=== PATIENT | female | born 1970 | race Caucasian/White ===

== ENCOUNTER 2020-03-02 11:39 | Outpatient (CLI) | payer MEDICAID, SELFPAY ==
[2020-03-02 12:25] LABS: SARS-CoV-2 Ag Negative (Negative)
== END 2020-03-02 11:40 | disposition home or self-care (01) ==
LOC: CHSLAB 11:43
PROVIDERS: PCP Family Medicine; Visit Provider Family Medicine
DX: R06.9 Unspecified abnormalities of breathing (principal); Z20.828 Contact with and (suspected) exposure to other viral communicable diseases
CPT/HCPCS: 87426

== ENCOUNTER 2022-09-04 14:56 | Emergency (ER) | payer OTHER, SELFPAY ==
--- NOTE | ~2022-09-04 | CT_ITS ---
EXAMINATION: CT abdomen pelvis wo con DATE: 09/04/2022 15:31 INDICATION: Abdominal pain TECHNIQUE: Computed tomography (CT) of the abdomen and pelvis was performed without intravenous contr ast. The dose-length product (DLP) was 1231.83 mGy-cm. Automated exposure control and iterative recon struction technique were employed. COMPARISON: None FINDINGS: Minimal dependent atelectasis is present in the lung bases. The heart size is normal. Punct ate calcifications in an otherwise normal spleen likely represent healed granulomatous disease. Stone s are present in the nondistended gallbladder. The liver, pancreas, and adrenal glands are normal. No nobstructing stones of the kidneys measure up to 3 mm on the left. There is a hernia of the anterior abdominal wall containing a segment of the transverse colon. The colon proximal to the hernia is dist ended and the colon distal to the hernia is collapsed. Immediately distal to the obstructed segment i s another short herniated segment of transverse colon into the anterior abdominal wall. No pathologic ally enlarged abdominal or pelvic lymph nodes are identified. There is no free intraperitoneal gas. T here is a small volume of pelvic ascites. There is moderate lumbar spondylosis. IMPRESSION: 1. Colonic obstruction resulting from a herniation of a segment of transverse colon into a ventral he rnia. Surgical evaluation is recommended. These findings and recommendations were discussed with Dr. Ye Irving MD in the Emergency Department at 1541 hours on 09/04/2022. 2. Cholelithiasis without evidence of cholecystitis. Reviewed, dictated and finalized at location L. IMPRESSION: 1. Colonic obstruction resulting from a herniation of a segment of transverse c olon into a ventral hernia. Surgical evaluation is recommended. These findings and recommendations were discussed with Dr. Ye Irving MD in the [facility] at 1541 hours on 09/04/2022. 2. Cholelithiasis without evidence of cholecystitis.
--- NOTE | 2022-09-04 15:08 | ECG_ITS ---
Measurements Intervals [place] Rate: 78 P: 28 NE: 152 QRS: -46 QRSD: 101 T: 71 QT: 378 QTc: 433 Interpretive Statements SINUS RHYTHM LEFT ANTERIOR FASCICULAR BLOCK [QRS AXIS <= -45, QR IN I, RS IN II] POSSIBLE ANTERIOR MYOCARDIAL INFARCTION , PROBABLY OLD [30 ms Q WAVE IN V3/V4, OR R < 0.2 mV IN V4] ABNORMAL ECG INTERPRETATION BASED ON A DEFAULT AGE OF 40 YEARS NO PREVIOUS ECG AVAILABLE FOR COMPARISON Electronically Signed On 09-08-2022 9:15:01 CDT by Tarun Lyman M.D.
[2022-09-04 15:17] VITALS: BP 150/89; PULSE 106; TEMP 36.6; O2SAT 99
[2022-09-04 15:24] LABS: Basophils Absolute Auto 0.04 K/mm3 (0.00-0.10); Basophils Percent Auto 0.3 % (0.0-1.0); Eosinophils Absolute Auto 0.11 K/mm3 (0.02-0.50); Eosinophils Percent Auto 0.9 % (1.0-6.0); Hematocrit 48.6 % (35.0-49.0); Hemoglobin 15.9 g/dL (12.0-15.0); Immature Granulocyte Absolute 0.07 K/mm3 (0.00-0.00); Immature Granulocyte Percent A 0.6 % (0.0-0.0); Lymphocytes Absolute Auto 2.52 K/mm3 (1.10-4.50); Lymphocytes Percent Auto 20.3 % (18.0-42.0); Mean Corpuscular HGB Conc 32.7 g/dL (32.0-36.0); Mean Corpuscular Hemoglobin 28.2 pg (27.0-31.0); Mean Corpuscular Volume 86.3 fL (78.0-102.0); Mean Platelet Volume 9.2 fl (9.2-11.8); Monocytes Absolute Auto 0.78 K/mm3 (0.10-0.90); Monocytes Percent Auto 6.3 % (2.0-11.0); Neutrophils Absolute Auto 8.9 K/mm3 (1.7-7.2); Neutrophils Percent Auto 71.6 % (50.0-70.0); Platelet Count Result 377 K/mm3 (150-420); Red Blood Count 5.63 M/mm3 (4.20-5.40); Red Cell Distribution Width 14.6 % (11.6-14.4); White Blood Count 12.4 K/mm3 (4.8-10.8)
[2022-09-04] MEDS: SODIUM CHLORIDE 0.9% IV 1,000 ML 999 ML IV CONT (15:35)
[2022-09-04] MEDS: ONDANSETRON INJ 4 MG/2 ML VIAL IV PUSH (15:36)
[2022-09-04] MEDS: KETOROLAC 30 MG/ML VIAL (*BKC) IV PUSH (15:36)
[2022-09-04 15:38] LABS: INR 0.9; Partial Thromboplastin Time 27.4 SEC (23.90-30.70); Prothrombin Time 10.1 Seconds (9.50-12.10)
[2022-09-04 15:41] LABS: Alanine Aminotransferase 19 U/L (14-59); Albumin Level 3.3 g/dL (3.4-5.0); Alkaline Phosphatase 103 U/L (46-116); Anion Gap 8 mmol/L (8-16); Aspartate Amino Transferase 16 U/L (15-37); Bilirubin,Total 0.6 mg/dL (0.00-1.00); Blood Urea Nitrogen 9 mg/dL (7-18); Calcium 9.7 mg/dL (8.5-10.1); Carbon Dioxide 27 mmol/L (21-32); Chloride 100 mmol/L (98-108); Estimated CRCL calculation 85 ml/min; Estimated Glomerular Filt Rate > 60; Glucose 110 mg/dL (70-99); Lipase 38 U/L (16-77); Osmolality Calculated 279 mOsm/kg (285-295); Potassium 4.1 mmol/L (3.5-5.1); Sodium 135 mmol/L (136-145); Troponin I 4.7 ng/L (0.00-60.4)
[2022-09-04 15:50] LABS: Lactic Acid Reflex 0.7 mmol/L (0.4-2.0)
--- NOTE | 2022-09-04 15:53 | ED.ABDPAIN ---
HPI - Abdominal Pain General Chief Complaint: Abdominal Pain Stated Complaint: right epigastric pain Time Seen by Provider: 09/04/22 15:08 Source: patient Mode of arrival: wheelchair Limitations: no limitations History of Present Illness HPI narrative: This is a 51-year-old female that has a abdominal pain started on Thursday has been off and on but over the last 24hours has not been able to pass gas. The patient has a history of ventral hernia he repair in the in the past, rates her pain at about an 8/10 with no diarrhea or constipation no shortness of breath no chest pain no fevers patient states that she has been having some chills and unable to pass gas or bowel movement. Patient states that she has had numerous hernia repairs in the past and around [address] MD elicited complaint: abdominal pain Onset (ago): day(s) Pain Consistency: constant Location: RLQ Severity: severe Pain scale (0-10): 8 Quality: aching Related Data Home Medications Medication Instructions Recorded Confirmed No Home Medications 09/04/22 09/04/22 Allergies Allergy/AdvReac Type Severity Reaction Status Date / Time No Known Allergies Verified 09/04/22 15:10 Review of Systems Review of Systems: All systems reviewed & are unremarkable except as noted in HPI and below PMFSH Past Medical History Medical History ADD (attention deficit disorder) Asthma Exam Const: General: ill appearing Nutritional Appearance: well nourished Orientation/consciousness: patient oriented x3 Limitations: no limitations HENMT: Head: normal to inspection Eyes: Conjunctivae: conjunctivae normal Pupils: Equal, round and reactive pupils present Neck: Neck: normal visual inspection Chest: Chest palpation & inspection: normal inspection of the chest Resp: Effort & Inspection: normal respiratory effort Cardio: Rate: regular rate Rhythm: regular rhythm GI: GI Palp: Yes Soft to palpation Auscultation: normal bowel sounds : General: Yes bladder normal to palpation Skin: General skin exam: normal color Rashes: no rashes Wounds: no wounds Neuro: General: patient oriented x3 Cranial nerves: Yes Nystagmus not present Extrem: General: normal to inspection Psych: Mental Status: mental status grossly normal Affect: normal affect Course Course Emergency Course: patient with abdominal pain received pain medication and states that her pain level has improved, also received Zofran with IV fluids. CT scan abdomen and pelvis performed shows colonic obstruction. Labs reviewed with patient. Spoke to patient about transfer and surgical referral and evaluation patient voiced her understanding. spoke to surgeon and hospitalist at [facility] which accepted the patient for transfer. Surgeon, Dr. Mejia and hospitalist Yousuf Pham Vital Signs Vital signs: Vital Signs Temperature 36.6 C 09/04/22 15:17 Pulse Rate 106 H 09/04/22 15:17 Blood Pressure 150/89 H 09/04/22 15:17 Pulse Oximetry 99 09/04/22 15:17 Oxygen Delivery Room Air 09/04/22 15:17 Temperature 36.6 C 09/04/22 15:17 Pulse Rate 106 H 09/04/22 15:17 Blood Pressure 150/89 H 09/04/22 15:17 Pulse Oximetry 99 09/04/22 15:17 Oxygen Delivery Room Air 09/04/22 15:17 MDM - Abdominal Pain Lab Data 09/04/22 15:18 09/04/22 15:18 Labs: Lab Results 09/04/22 Range/Units 15:18 WBC 12.4 H (4.8-10.8) K/mm3 RBC 5.63 H (4.20-5.40) M/mm3 Hgb 15.9 H (12.0-15.0) g/dL Hct 48.6 (35.0-49.0) % MCV 86.3 (78.0-102.0) fL MCH 28.2 (27.0-31.0) pg MCHC 32.7 (32.0-36.0) g/dL RDW 14.6 H (11.6-14.4) % Plt Count 377 (150-420) K/mm3 MPV 9.2 (9.2-11.8) fl Immature Gran % (Auto) 0.6 H (0.0-0.0) % Neut % (Auto) 71.6 H (50.0-70.0) % Lymph % (Auto) 20.3 (18.0-42.0) % [place] % (Auto) 6.3 (2.0-11.0) % Eos % (Auto) 0.9 L (1.0-6.0)
[2022-09-04 16:15] VITALS: BP 128/78; PULSE 85; RESP 20; O2SAT 96
[2022-09-04] MEDS: MORPHINE SULFATE (*CRX) 4 MG/ML INJ IV PUSH ×2 (16:45→19:19)
[2022-09-04 17:15] VITALS: BP 114/67; PULSE 78; TEMP 36.5; O2SAT 96
[2022-09-04 18:15] VITALS: BP 120/78; PULSE 85; RESP 20; O2SAT 96
[2022-09-04 19:15] VITALS: BP 113/76; PULSE 87; RESP 20; TEMP 37.3; O2SAT 96
== END 2022-09-04 19:34 | disposition short-term general hospital (02) ==
PROVIDERS: Emergency Provider Emergency Medicine; PCP Family Medicine
DX: K56.691 Other complete intestinal obstruction (principal)
CPT/HCPCS: 36415; 74176; 80053; 83605; 83690; 84484; 85025; 85610; 85730; 93005; 96361; 96374; 96375; 96376; 99285; J1885; J2270; J2405; J7030

== ENCOUNTER 2022-09-23 17:20 | Emergency (ER) | payer OTHER, SELFPAY ==
--- NOTE | ~2022-09-23 | XR_ITS ---
EXAMINATION: XR chest 1V portable Exam Date/Time: 09/23/2022 17:50 CDT HISTORY: nonproductive cough Comparison: 09/04/2022. RESULT: Lines, tubes, and devices: None. Lungs and pleura: Minimal left basilar scar. Mild left hemidiaphragm elevation. Left midlung nodule. Otherwise clear. Cardiomediastinal silhouette: Stable. Other: No acute osseous or upper abdominal finding. IMPRESSION: No acute cardiopulmonary process. Left midlung nodule, prior recommendation for nonemergent, outpatie nt low-dose noncontrast CT of the chest is unchanged. Reviewed, dictated and finalized at location K. IMPRESSION: No acute cardiopulmonary process. Left midlung nodule, prior recommendation for nonemergent, outpatient low-dose noncontrast CT of the chest is unchanged.
[2022-09-23 17:25] VITALS: BP 148/93; PULSE 108; RESP 22; TEMP 37.1; O2SAT 97
--- NOTE | 2022-09-23 17:31 | ED.ABDPAIN ---
HPI - Abdominal Pain General Chief Complaint: Shortness of Breath/Dyspnea Stated Complaint: respiratory; abdominal pain Time Seen by Provider: 09/23/22 17:27 Source: patient Mode of arrival: ambulatory Limitations: no limitations History of Present Illness HPI narrative: 51-year-old female with a history of smoking, asthma, recent incarcerated ventral hernia repair with small intestinal resections/colonic obstruction for which she was admitted from 09/04/2022 to 09/11/2022 presents to the ER with a 3 day history of -- upper respiratory tract symptoms including running nose, sinus drainage -- frontal headache -- nonproductive cough -- abdominal pain made worse by coughing. No abdominal distension. The patient has been having bowel movements. -- nausea with vomiting. She has had 2 episodes of vomiting this morning. -- Low-grade fever after the patient was discharged home on 09/11/2022 the patient felt well. All the symptoms started in the last 3 days. MD elicited complaint: abdominal pain Pertinent past history: none Onset (ago): day(s) ( Started 3 days ago) Pain Consistency: intermittent Location: diffuse Severity: mild Quality: cramping Radiation: none Migration to: no migration Exacerbating factors: other ( coughing) Relieving factors: nothing Associated symptoms: nausea and vomiting Related Data Patient : No Home Medications Medication Instructions Recorded Confirmed budesonide-formoterol HFA 160 2 inh inhalation BID 09/04/22 09/23/22 mcg-4.5 mcg/actuation aerosol inhaler (Symbicort) Allergies Allergy/AdvReac Type Severity Reaction Status Date / Time No Known Allergies Allergy Verified 09/23/22 17:32 Review of Systems Review of Systems: All systems reviewed & are unremarkable except as noted in HPI and below Constitutional: Constitutional: Reports as per HPI and Reports no additional constitutional complaints Eyes: Eyes: Reports as per HPI and Reports no additional eye complaints ENT: Reports system reviewed and no additional complaints, except as documented, Reports as per HPI and Reports nasal congestion Cardiovascular: Cardiovascular: Reports as per HPI and Reports no additional cardiovascular complaints Respiratory: Respiratory: Reports as per HPI, Reports no additional respiratory complaints, Reports chest congestion and Reports cough Gastrointestinal: Gastrointestinal: Reports as per HPI, Reports no additional gastrointestinal complaints, Reports abdominal pain, Reports nausea and Reports vomiting Genitourinary: Genitourinary: Reports no additional female genitourinary complaints Musculoskeletal: Musculoskeletal: Reports no additional musculoskeletal complaints and Reports as per HPI Integumentary/Breasts: Skin/Breast: Reports system reviewed and no additional complaints, except as docu and Reports as per HPI Neurologic: Reports system reviewed and no additional complaints, except as documented and Reports as per HPI Psychiatric: Psychiatric: Reports no additional psychiatric complaints and Reports as per HPI Endocrine: Endocrine: Reports no additional endocrine complaints and Reports as per HPI Hematologic/Lymphatic: Hematologic/Lymphatic: Reports no additional hematologic/lymphatic complaints and Reports as per HPI Allergic/Immunologic: Allergic/Immunologic: Reports no additional allergic/immunologic complaints and Reports as per HPI [facility] Past Medical History Medical History ADD (attention deficit disorder) Asthma Allergic asthma, allergic to cats which she has in her home Surgical History Surgical History History of incisional hernia repair Repair 22 cm recurrent ventral incisional hernia, removal 22 x 15 cm abdominal wall mesh, extensive adhesiolysis, small-bowel resection with anastomosis Family History Family History (Reviewed 09/23/22 @ 17:42 by Joel Greenberg
[2022-09-23 17:33] VITALS: BP 148/93; PULSE 109; RESP 18; TEMP 37.1; O2SAT 97
[2022-09-23 17:37] VITALS: O2SAT 98
--- NOTE | 2022-09-23 17:53 | PC.NURSE ---
PCR test sent to lab [id number]
[2022-09-23 18:02] LABS: Basophils Absolute Auto 0.08 K/mm3 (0.00-0.10); Basophils Percent Auto 0.8 % (0.0-1.0); Eosinophils Absolute Auto 0.88 K/mm3 (0.02-0.50); Eosinophils Percent Auto 8.5 % (1.0-6.0); Hematocrit 39.7 % (35.0-49.0); Hemoglobin 12.4 g/dL (12.0-15.0); Immature Granulocyte Absolute 0.08 K/mm3 (0.00-0.00); Immature Granulocyte Percent A 0.8 % (0.0-0.0); Lymphocytes Absolute Auto 1.24 K/mm3 (1.10-4.50); Lymphocytes Percent Auto 11.9 % (18.0-42.0); Mean Corpuscular HGB Conc 31.2 g/dL (32.0-36.0); Mean Corpuscular Hemoglobin 27.6 pg (27.0-31.0); Mean Corpuscular Volume 88.2 fL (78.0-102.0); Mean Platelet Volume 8.8 fl (9.2-11.8); Monocytes Absolute Auto 0.71 K/mm3 (0.10-0.90); Monocytes Percent Auto 6.8 % (2.0-11.0); Neutrophils Absolute Auto 7.4 K/mm3 (1.7-7.2); Neutrophils Percent Auto 71.2 % (50.0-70.0); Platelet Count Result 465 K/mm3 (150-420); Red Cell Distribution Width 15.5 % (11.6-14.4); White Blood Count 10.4 K/mm3 (4.8-10.8)
[2022-09-23 18:13] LABS: Appearance Urine Clear (Clear); Bilirubin Urine Negative (Negative); Blood Urine Negative (Negative); Color Urine Yellow (Yellow); Glucose Urine UA Negative (Negative); Ketones Urine Negative (Negative); Leukocyte Esterase Ur Negative LEU/UL (Negative); Nitrate Urine Negative (Negative); Protein Urine Negative (Negative); pH Urine 7.5 (5.0-8.0)
[2022-09-23 18:14] LABS: Add Urine Microscopic? NO
[2022-09-23 18:17] LABS: INR 0.9; Prothrombin Time 10.2 Seconds (9.50-12.10)
[2022-09-23 18:22] LABS: Lactic Acid Reflex 0.7 mmol/L (0.4-2.0)
[2022-09-23 18:23] LABS: Alanine Aminotransferase 21 U/L (14-59); Albumin Level 2.7 g/dL (3.4-5.0); Alkaline Phosphatase 98 U/L (46-116); Anion Gap 7 mmol/L (8-16); Aspartate Amino Transferase 19 U/L (15-37); Bilirubin,Total 0.3 mg/dL (0.00-1.00); Blood Urea Nitrogen 9 mg/dL (7-18); Calcium 8.9 mg/dL (8.5-10.1); Carbon Dioxide 30 mmol/L (21-32); Chloride 102 mmol/L (98-108); Estimated CRCL calculation 77 ml/min; Estimated Glomerular Filt Rate > 60; Glucose 105 mg/dL (70-99); Lipase 106 U/L (16-77); NT Pro B Type Natriuretic Pept 27 pg/mL (0-125); Osmolality Calculated 286 mOsm/kg (285-295); Sodium 139 mmol/L (136-145); Total Protein 7.3 g/dL (6.4-8.2)
[2022-09-23 18:39] LABS: Influenza A QL RT-PCR Negative (Negative); Influenza B QL RT-PCR Negative (Negative); SARS-CoV-2 RNA PCR Negative (Negative)
[2022-09-23 18:41] LABS: RSV RNA, RT-PCR Negative (Negative)
[2022-09-23] MEDS: AZITHROMYCIN 250 MG TABLET 500 MG PO (19:29)
[2022-09-23] MEDS: KETOROLAC 30 MG/ML VIAL (*BKC) IM (19:29)
[2022-09-23] MEDS: IPRATROPIUM 0.5 MG/ALBUTEROL SULFATE 2.5 MG AMPUL.NEB 3 ML INHALATION (19:29)
[2022-09-23] MEDS: MAG HYDROX/AL HYDROX/SIMETH 30 ML UDC PO (19:29)
[2022-09-23 19:31] VITALS: PULSE 104; RESP 18; O2SAT 94
[2022-09-23] MEDS: methylPREDNISolone SOD SUCC 125 MG VIAL 40 MG IM (19:34)
[2022-09-23 19:39] VITALS: PULSE 104; RESP 20; O2SAT 97
[2022-09-23 19:43] VITALS: BP 133/92; PULSE 103; RESP 20; O2SAT 97
== END 2022-09-23 19:52 | disposition home or self-care (01) ==
PROVIDERS: Emergency Provider Internal Medicine Critical Care Medicine; PCP Nurse Practitioner Family
DX: J44.1 Chronic obstructive pulmonary disease with (acute) exacerbation (principal); R91.1 Solitary pulmonary nodule; R10.84 Generalized abdominal pain; F17.210 Nicotine dependence, cigarettes, uncomplicated; Z20.822 Contact with and (suspected) exposure to COVID-19
CPT/HCPCS: 36415; 71045; 80053; 81003; 83605; 83690; 83880; 84484; 85025; 85610; 87637; 94640; 96372; 99284; A9270; J1885; J2930

== ENCOUNTER 2022-10-06 07:39 | Emergency (ER) | payer OTHER, SELFPAY ==
[2022-10-06] VITALS (28 sets, daily range): BP systolic 92–143; BP diastolic 70–89; PULSE 75–95; RESP 10–26; TEMP 36.7–36.9; O2SAT 91–100
--- NOTE | ~2022-10-06 | CT_ITS ---
EXAMINATION: CTA chest abdomen pelvis DATE: 10/06/2022 09:09 INDICATION: Chest pain radiating to the back TECHNIQUE: Computed tomographic angiography (CTA) of the chest, abdomen and pelvis was performed with 150 cc of Omnipaque-350 intravenous contrast. Additional 3D reconstructions utilizing rotating maxim um intensity projection (MIP) were performed. Automated exposure control and iterative reconstruction technique were employed. The dose-length product was 1367.73 mGy-cm. COMPARISON: 09/04/2022 FINDINGS: Chest: Linear bands of discoid atelectasis/scarring in the left lower lobe and lingula. There are couple kaylyn cified nodules within a relatively thin-walled cavitary lesion in the left lower lobe which along wit h calcified left hilar lymph nodes are likely sequela from old granulomatous disease. Heart size is n ormal. No pericardial effusion. Thoracic aorta is normal in caliber with no dissection. Although not performed as a dedicated pulmonary bullous protocol there is good contrast opacification of the pulmo nary arteries which demonstrates no pulmonary embolism. No pathologically enlarged thoracic lymphaden opathy. Mild thoracic spondylosis with prominent right anterior endplate osteophytes at a few levels in the midthoracic spine. Abdomen and pelvis: Multiple calcified gallstones in the dependent aspect of the normal-appearing gallbladder which measu res 2.8 cm in maximal diameter without wall thickening or pericholecystic inflammatory stranding to s uggest acute cholecystitis. Liver, pancreas, bilateral adrenal glands and kidneys are normal. Multipl e splenic calcification consistent with old granulomatous disease. Interval revision of a prior ventr al hernia repair. The repair appears intact however there is a 21.1 x 8.0 x 14.9 cm loculated loculat ed fluid collection with relatively low near simple fluid attenuation and without significant surroun ding inflammatory stranding in the subcutaneous fat at the site of the revision most likely represent ing a postoperative seroma. There is focal stranding in the central pelvis surrounding a 2.2 x 1.4 cm loculated gas and fluid collection at the end a suture line which appears to be related to a small b owel anastomosis to the terminal ileum. It is unclear if this collection is centered or more likely e xtraluminal. There is however no other more remote free intraperitoneal gas. No bowel obstruction. Bl adder is normal. The uterus is not identified and has likely been surgically resected. Abdominal aort a is normal in caliber with no dissection. No pathologically enlarged abdominal or pelvic lymphadenop athy. Lucent hemangioma at T12. Severe lower lumbar spondylosis. IMPRESSION: 1. Intact ventral hernia repair revision but with overlying 21 x 8 x 15 cm fluid collection is anteri or abdominal wall subcutaneous fat most likely representing a seroma. Differential would include absc ess in the appropriate clinical setting although there does not appear to be a significant amount of surrounding inflammation presenting to elevate suspicion. 2. 2.2 x 1.4 cm loculated gas and fluid collection at the end of a suture line related to a distal sm all bowel anastomosis. This appears more likely extraluminal. An intraluminal although there is no mo re remote free intraperitoneal gas to more specifically suggest this. 3. Cholelithiasis. 4. Normal aorta. No acute cardiopulmonary disease. Reviewed, dictated and finalized at location D. IMPRESSION: 1. Intact ventral hernia repair revision but with overlying 21 x 8 x 15 cm flui d collection is anterior abdominal wall subcutaneous fat most likely representi ng a seroma. Differential would include abscess in the appropriate clinical set ting although there does not appear to be a significant amount of surrounding i nflammatio
--- NOTE | ~2022-10-06 | US_ITS ---
Limited Abdominal Sonogram: Real-time sonographic imaging of the right upper quadrant was performed. Clinical History: Right upper quadrant pain Findings: The liver appears normal with no evidence of mass lesion or bile duct dilatation. Main por tesha vein demonstrates normal direction of flow. The gallbladder is well distended, and and contains e chogenic, shadowing gallstones. The common bile duct measures 5 mm. Pancreas is obscured by bowel ga s shadowing. Impression: Cholelithiasis. Reviewed, dictated and finalized at location M. Impression: Cholelithiasis.
--- NOTE | 2022-10-06 07:39 | ECG_ITS ---
Measurements Intervals [place] Rate: 86 P: 55 NC: 175 QRS: 12 QRSD: 97 T: 62 QT: 372 QTc: 447 Interpretive Statements SINUS RHYTHM DELAYED PRECORDIAL R/S TRANSITION BASELINE ARTIFACT- I, II, III, AVR, AVL BORDERLINE ECG COMPARED TO ECG 09/05/2022 10:14:30 NO SIGNIFICANT CHANGES Electronically Signed On 10-06-2022 7:51:13 CDT by Farshad Villalta D.O.
--- NOTE | 2022-10-06 07:46 | ED.GENADULT ---
HPI - General Adult General Chief complaint: Chest Pain Stated complaint: chest/abdominal pain Time Seen by Provider: 10/06/22 07:43 History of Present Illness HPI narrative: Iveth is a 51F with a PMH of COPD/asthma, RA, anxiety, tobacco abuse, and recent history of incarcerated hernia that presented to the ED with chest pain and epigastric pain. It started at 1230 last night and has waxed and wanted since. She reports and epigastric burning, and a dull chest pain that radiates to the right arm and back. She is nauseated but has not vomited. She is lightheaded when she stands up and had dyspnea while walking. Pain was worse with Tums. She also took lorazepam and Percocet which did not help. Last BM was yesterday. Related Data Home Medications Medication Instructions Recorded Confirmed budesonide-formoterol HFA 160 2 inh inhalation BID 09/04/22 10/06/22 mcg-4.5 mcg/actuation aerosol inhaler (Symbicort) Allergies Allergy/AdvReac Type Severity Reaction Status Date / Time No Known Allergies Allergy Verified 10/06/22 07:45 Review of Systems Review of Systems: All systems reviewed & are unremarkable except as noted in HPI and below PMFSH Past Medical History Medical History ADD (attention deficit disorder) Asthma Allergic asthma, allergic to cats which she has in her home Surgical History Surgical History History of incisional hernia repair Repair 22 cm recurrent ventral incisional hernia, removal 22 x 15 cm abdominal wall mesh, extensive adhesiolysis, small-bowel resection with anastomosis Family History Family History Father Diabetes mellitus Mother Colon cancer Breast cancer Social History Social History Years smoked: 40 Smoking status: Current every day smoker Tobacco type: cigarettes Alcohol intake: current Drinks per week: 9 Substance use: current Substance use type: marijuana Last use: SEP 02 2022 Lack of Transportation: YES Lack of Food: Never True Current Housing: I Have Housing Concerned About Future Housing: No Difficulty Paying Gas/Electric Bills: YES Difficulty Paying for Meds: YES Currently Unemployed: YES Education: Bachelor's Degree Difficulty w/ Childcare or Family Care: No Spiritual care concerns: No Exam Const: General: healthy appearing, no acute distress and alert; No confusion Nutritional Appearance: well nourished Orientation/consciousness: patient oriented x3 HENMT: Head: normal to inspection Ears: external ears normal Face/Nose/Sinus: Normal external nose present Eyes: Conjunctivae: conjunctivae normal Pupils: Equal, round and reactive pupils present Neck: Neck: normal visual inspection Chest: Chest palpation & inspection: normal inspection of the chest Resp: Effort & Inspection: normal respiratory effort Auscultation: clear to auscultation bilaterally Cardio: Rate: regular rate Rhythm: regular rhythm GI: Inspection: distended GI Palp: Yes Tenderness to palpation present (GI) (epigastric and RUQ) Auscultation: Hypoactive bowel sounds present Other: vertical midline scar Back/Spine/Pelvis: Back: CVA tenderness Skin: General skin exam: normal color Rashes: no rashes Neuro: General: patient oriented x3 and moves all extremities Cranial nerves: Yes Nystagmus not present Speech: normal speech Extrem: General: normal to inspection Psych: Mental Status: mental status grossly normal Course Course Emergency Course: Orderd labs and CT. EKG showed NSR with a rate of 86, normal axis and no ST elevation or depression. Labs showed slight leukocytosis at 11.3, and significant transaminitis, but troponin was normal. Limited Abdominal Sonogram: Real-time sonographic imaging of the right
--- NOTE | 2022-10-06 07:53 | PC.NURSE ---
PCR test sent to lab @[id number]
[2022-10-06] MEDS: ASPIRIN 81 MG CHEWABLE TABLET 324 MG PO (08:01)
[2022-10-06 08:02] LABS: Basophils Absolute Auto 0.04 K/mm3 (0.00-0.10); Basophils Percent Auto 0.4 % (0.0-1.0); Eosinophils Absolute Auto 0.53 K/mm3 (0.02-0.50); Eosinophils Percent Auto 4.7 % (1.0-6.0); Hemoglobin 12.4 g/dL (12.0-15.0); Immature Granulocyte Absolute 0.08 K/mm3 (0.00-0.00); Immature Granulocyte Percent A 0.7 % (0.0-0.0); Lymphocytes Absolute Auto 2.67 K/mm3 (1.10-4.50); Lymphocytes Percent Auto 23.6 % (18.0-42.0); Mean Corpuscular HGB Conc 32.6 g/dL (32.0-36.0); Mean Corpuscular Hemoglobin 28.6 pg (27.0-31.0); Mean Corpuscular Volume 87.6 fL (78.0-102.0); Mean Platelet Volume 9.2 fl (9.2-11.8); Monocytes Absolute Auto 0.69 K/mm3 (0.10-0.90); Monocytes Percent Auto 6.1 % (2.0-11.0); Neutrophils Absolute Auto 7.3 K/mm3 (1.7-7.2); Neutrophils Percent Auto 64.5 % (50.0-70.0); Platelet Count Result 322 K/mm3 (150-420); Red Blood Count 4.34 M/mm3 (4.20-5.40); Red Cell Distribution Width 15.1 % (11.6-14.4); White Blood Count 11.3 K/mm3 (4.8-10.8)
[2022-10-06 08:16] LABS: INR 0.9
[2022-10-06 08:24] LABS: Lactic Acid Reflex 1.3 mmol/L (0.4-2.0)
[2022-10-06 08:25] LABS: Alanine Aminotransferase 122 U/L (14-59); Albumin Level 2.9 g/dL (3.4-5.0); Alkaline Phosphatase 155 U/L (46-116); Anion Gap 9 mmol/L (8-16); Aspartate Amino Transferase 308 U/L (15-37); Bilirubin,Total 0.5 mg/dL (0.00-1.00); Blood Urea Nitrogen 14 mg/dL (7-18); Calcium 9.6 mg/dL (8.5-10.1); Carbon Dioxide 29 mmol/L (21-32); Chloride 102 mmol/L (98-108); Estimated CRCL calculation 80 ml/min; Estimated Glomerular Filt Rate > 60; Glucose 120 mg/dL (70-99); Lipase 85 U/L (16-77); NT Pro B Type Natriuretic Pept 25 pg/mL (0-125); Osmolality Calculated 291 mOsm/kg (285-295); Potassium 3.8 mmol/L (3.5-5.1); Sodium 140 mmol/L (136-145); Total Protein 7.3 g/dL (6.4-8.2); Troponin I 5.9 ng/L (0.00-60.4)
[2022-10-06 08:28] LABS: CRP 0.9 mg/dL (0.0-0.9); Lipase 85 U/L (16-77)
[2022-10-06 08:30] LABS: Influenza A QL RT-PCR Negative (Negative); Influenza B QL RT-PCR Negative (Negative); SARS-CoV-2 RNA PCR Negative (Negative)
[2022-10-06 08:31] LABS: RSV RNA, RT-PCR Negative (Negative)
--- NOTE | 2022-10-06 08:53 | PC.NURSE ---
PT IS AWAITING ULTRASOUND AT THIS TIME. NAD NOTED AT THIS TIME. WARM BLANKETS WERE PROVIDED. WILL CONTINUE TO MONITOR.
--- NOTE | 2022-10-06 10:41 | PC.NURSE ---
pt is upset that erp would not get a note to be excused from court today at 1330. pt is then upset, stating she is going to need pain medication ordered. advised pt that erp did send over a rx for pain medication. pt is currently pain free at this time.
== END 2022-10-06 10:44 | disposition home or self-care (01) ==
PROVIDERS: Emergency Provider Family Medicine; PCP Nurse Practitioner Family
DX: K80.20 Calculus of gallbladder without cholecystitis without obstruction (principal); T14.8XXA Other injury of unspecified body region, initial encounter; J44.9 Chronic obstructive pulmonary disease, unspecified; F41.9 Anxiety disorder, unspecified; F17.210 Nicotine dependence, cigarettes, uncomplicated; Z20.822 Contact with and (suspected) exposure to COVID-19; X58.XXXA Exposure to other specified factors, initial encounter
CPT/HCPCS: 36415; 71275; 74174; 76705; 80053; 83605; 83690; 83735; 83880; 84484; 85025; 85610; 86140; 87637; 93005; 99284; A9270; Q9967

== ENCOUNTER 2022-10-10 07:51 | Outpatient (CLI) | payer OTHER, SELFPAY ==
--- NOTE | ~2022-10-10 | NM_ITS ---
EXAMINATION: NM hepatobiliary w pharm DATE: 10/10/2022 10:24 INDICATION: Right upper quadrant abdominal pain worsening with food COMPARISON: CT dated 10/06/2022 TECHNIQUE: 5.6 mCi Tc-99m mebrofenin (Choletec) was administered intravenously. Scintigraphic images of the abdomen were obtained for one hour. 2 mcg sincalide (Kinevac) was administered by slow intrav enous infusion, and imaging was continued for 30 minutes. Gallbladder ejection fraction was calculate d by the technologist. FINDINGS: There is normal clearance of radiotracer from the blood pool. There is homogeneous tracer uptake by t he liver. Activity progresses to the gallbladder and bowel. The gallbladder ejection fraction (GBEF) is 76% (normal 10-90%, but most patient with gallbladder dysfunction have GBEF < 35% which does over lap with the normal range). IMPRESSION: 1. Normal hepatobiliary scan. Reviewed, dictated and finalized at location B.
== END 2022-10-10 07:52 | disposition home or self-care (01) ==
LOC: CHSIMG 07:53
PROVIDERS: PCP Nurse Practitioner Family; Visit Provider Surgery
DX: R10.11 Right upper quadrant pain (principal)
CPT/HCPCS: 78227; A9537; J2805

== ENCOUNTER 2022-10-13 10:30 | Outpatient (CLI) | payer OTHER, SELFPAY ==
--- NOTE | ~2022-10-13 | CT_ITS ---
EXAMINATION: CT lung screening DATE: 10/13/2022 11:09 INDICATION: lung nodule on CXR,SMOKER HISTORY TECHNIQUE: Computed tomography (CT) of the chest was performed without intravenous contrast. Addition al 3D reconstructions utilizing coronal maximum intensity projection (MIP) were performed. Automated exposure control and iterative reconstruction technique were employed. The dose-length product was 17 4.01 mGy-cm. COMPARISON: 10/06/2022 FINDINGS: Near band of discoid atelectasis at the lingula. Again seen are couple calcified nodules within a mul tilocular cystic lesion in the superior segment of the left lower lobe with thickness measuring up to 2 mm. A few additional calcified nodules in the left lung, calcified left hilar lymph nodes and mult iple splenic calcifications are all consistent with old granulomatous disease. No other suspicious pu lmonary nodules, pneumonia, pulmonary edema or pleural effusion. Heart size is normal. No pericardial effusion. Thoracic aorta is normal in caliber. No pathologically enlarged thoracic lymphadenopathy. Cholelithiasis and nephrolithiasis which along with a partially visualized likely postoperative serom a along the anterior abdominal wall or further detailed on separate CT of the abdomen and pelvis was performed on 10/13/2022. IMPRESSION: 1. Lung-RADS category 4A: (Suspicious, 5-15% chance of malignancy). Recommend 3 month follow-up low-d ose noncontrast chest CT. Reviewed, dictated and finalized at location A. IMPRESSION: 1. Lung-RADS category 4A: (Suspicious, 5-15% chance of malignancy). Recommend 3 month follow-up low-dose noncontrast chest CT.
--- NOTE | ~2022-10-13 | CT_ITS ---
EXAMINATION: CT abdomen pelvis wo con DATE: 10/13/2022 11:08 INDICATION: Right upper quadrant abdominal pain. Incisional hernia. TECHNIQUE: Computed tomography (CT) of the abdomen and pelvis was performed without intravenous contr ast. Automated exposure control and iterative reconstruction technique were employed. The dose-length product was 1174.85 mGy-cm. COMPARISON: None FINDINGS: Mild discoid atelectasis at the lingula. Heart size is normal. No pericardial or pleural effusion. Mu ltiple calcified gallstones within the otherwise normal gallbladder. Liver, pancreas and bilateral ad renal glands are normal. Multiple splenic calcifications consistent with old granulomatous disease. T here are bilateral nonobstructing renal stones with 2 stones measuring up to 2-3 mm in maximal diamet er. Again seen is an intact ventral hernia repair with overlying large loculated subcutaneous fluid c ollection measuring 19.3 cm craniocaudally and 13.6 x 7.6 cm in maximal transaxial dimensions with mi nimal amount of fat layering in the nondependent aspect of the fluid collection. There are couple per sistent tiny foci of gas in the midline abdominal wall at the cephalad aspect of the repair. Persiste nt stranding surrounding an approximately 7 mm collection of gas in the mesentery along one side of a nastomotic suture line at the distal ileum which remains indeterminate for intraluminal versus extral uminal gas. No organized abscess or more remote free intraperitoneal gas. No bowel obstruction. Bladd er is normal. The uterus is not identified and has likely been surgically resected. No pathologically enlarged abdominal or pelvic lymphadenopathy. Severe lower lumbar spondylosis. IMPRESSION: 1. Intact ventral hernia repair revision with slight decrease in size of a still large 19.3 x 13.6 x 7.6 cm fluid collection in the anterior abdominal subcutaneous fat most likely representing a hematom a/seroma. 2. Decrease in size of a now 7 mm collection of gas within the mesenteric and of a suture line relate d to a distal small bowel anastomosis. There remains indeterminate whether this is intraluminal or ex traluminal. 3. Cholelithiasis. 4. Bilateral nonobstructing nephrolithiasis. Reviewed, dictated and finalized at location A. IMPRESSION: 1. Intact ventral hernia repair revision with slight decrease in size of a stil l large 19.3 x 13.6 x 7.6 cm fluid collection in the anterior abdominal subcuta neous fat most likely representing a hematoma/seroma. 2. Decrease in size of a now 7 mm collection of gas within the mesenteric and o f a suture line related to a distal small bowel anastomosis. There remains inde terminate whether this is intraluminal or extraluminal. 3. Cholelithiasis. 4. Bilateral nonobstructing nephrolithiasis.
== END 2022-10-13 10:31 | disposition home or self-care (01) ==
LOC: CHSIMG 10:34
PROVIDERS: PCP Nurse Practitioner Family; Visit Provider Surgery
DX: Z12.2 Encounter for screening for malignant neoplasm of respiratory organs (principal); K43.2 Incisional hernia without obstruction or gangrene; Z87.891 Personal history of nicotine dependence; R91.8 Other nonspecific abnormal finding of lung field
CPT/HCPCS: 71271; 74176

== ENCOUNTER 2023-01-13 12:34 | Outpatient (CLI) | payer OTHER, SELFPAY ==
--- NOTE | ~2023-01-13 | CT_ITS ---
CT Scan of the Chest without Contrast: Clinical Indication: Pulmonary nodule Technique: Contiguous sections were acquired throughout the chest without intravenous contrast. Dose reduction technique was used on this scan by utilizing automated exposure control and iterative recon struction technique. The dose-length product (DLP) was 196.85 mGy-cm. COMPARISON: 10/13/2022, 10/06/2022 Findings: There is no evidence of any significant mediastinal, hilar or axillary lymphadenopathy. The mediastin al soft tissues appear normal. There is no evidence of pleural or pericardial effusion. There is a stable small cavitary lesion with focal calcification in the superior segment left lower l obe. No new pulmonary nodule seen. Images through the upper abdomen reveal partially imaged anterior abdominal wall/subcutaneous seroma. Impression: Stable small cavitary nodule with focal calcification in the superior segment left lower lobe. Stabil ity is reassuring. Continued follow-up at one year interval recommended. Reviewed, dictated and finalized at [facility]. Impression: Stable small cavitary nodule with focal calcification in the superior segment l eft lower lobe. Stability is reassuring. Continued follow-up at one year interv al recommended.
== END 2023-01-13 12:35 | disposition home or self-care (01) ==
PROVIDERS: PCP Nurse Practitioner Family; Visit Provider Nurse Practitioner Family
DX: R91.1 Solitary pulmonary nodule (principal); R91.8 Other nonspecific abnormal finding of lung field
CPT/HCPCS: 71250

== ENCOUNTER 2023-02-11 22:52 | Observation (INO) | payer OTHER, SELFPAY ==
--- NOTE | ~2023-02-11 | XR_ITS ---
EXAMINATION: XR ribs LT 2V DATE: 02/12/2023 14:24 INDICATION: Left chest pain and clicking when coughing post fall one day prior TECHNIQUE: 3 views of the left ribs were obtained. COMPARISON: Chest radiograph dated 09/23/[address] dated 02/22/2023 FINDINGS: Nondisplaced fracture of the posterolateral left eighth and ninth ribs. Additional nondisplaced fract ure at the medial head of the left clavicle is better appreciated on the prior CT. Mild streaky atele ctasis at the left lung base which may be related to splinting. Small cavitary nodule with coarse kaylyn cific location better appreciated on the immediately prior CT projects over the posterior left sevent h rib on the frontal projection. No pleural effusion or pneumothorax. Heart size is normal. IMPRESSION: 1. Nondisplaced posterolateral left eighth and ninth rib fractures. 2. Nondisplaced fracture at the medial left clavicle. Reviewed, dictated and finalized at location A. NESS INTEGRATION ANALYST
--- NOTE | ~2023-02-11 | US_ITS ---
EXAMINATION: US venous doppler [facility] DATE: 02/12/2023 20:30 INDICATION: Chest pain. Elevated d-dimer. TECHNIQUE: Grayscale ultrasound images without and with compression and Doppler ultrasound images of the bilateral lower extremity veins were obtained. COMPARISON: None. FINDINGS: The visualized portions of right common femoral vein, profunda (deep) femoral vein, femoral vein, pop liteal vein, peroneal veins, posterior tibial veins, and greater saphenous vein outflow are patent. The visualized portions of left common femoral vein, profunda femoral vein, femoral vein, popliteal v ein, peroneal veins, posterior tibial veins, and greater saphenous vein outflow are patent. IMPRESSION: 1. No deep venous thrombosis. Reviewed, dictated and finalized at location E. TAL FINISHER
--- NOTE | ~2023-02-11 | CT_ITS ---
Noncontrast CT scan of the cervical spine Technique: Multiple contiguous axial [address] images of the cervical spine were obtained and rec onstructed in 2D sagittal and coronal planes on the acquisition scanner. Dose reduction technique was used on this scan by utilizing automated exposure control, adjustment of the mA and/or kV according to patient size. The dose-length product (DLP) was 476.44 mGy-cm. Clinical History: Pain Findings: There is a minimally displaced fracture of the medial left clavicle. No fracture or subluxa tion seen in the cervical spine. Minimal degenerative disc changes present throughout the cervical sp ine. No prevertebral soft tissue swelling. Impression: No fracture or subluxation of the cervical spine itself. Minimally displaced fracture of the medial left clavicle. Reviewed, dictated and finalized at [facility]. PROCESSING AUDITOR Impression: No fracture or subluxation of the cervical spine itself. Minimally displaced fracture of the medial left clavicle.
--- NOTE | ~2023-02-11 | CT_ITS ---
Non-contrast Head CT History: Head injury Technique: Axial non-contrast imaging of the brain was performed. Dose reduction technique was used on this scan by utilizing automated exposure control and iterative reconstruction technique. The dose -length product (DLP) was 605.33 mGy-cm. Findings: There is no evidence of intracranial hemorrhage, mass lesion, or acute infarct. Brain par enchyma appears normal. The ventricles and subarachnoid spaces are normal in size. The calvarium ap pears normal. The visualized paranasal sinuses and mastoid air cells are clear. Impression: No significant abnormality seen. Reviewed, dictated and finalized at [facility]. DISTRIBUTOR Impression: No significant abnormality seen.
--- NOTE | ~2023-02-11 | CT_ITS ---
Clinical Indication: Syncope, elevated d-dimer CT Scan of the Chest with Contrast: Technique: Contiguous sections were acquired throughout the chest after intravenous administration of 100 cc of Omnipaque 350. Dose reduction technique was used on this scan by utilizing automated expos ure control and iterative reconstruction technique. The dose-length product (DLP) was 650.69 mGy-cm. COMPARISON: 01/13/2023 Findings: There is no evidence of any significant mediastinal, hilar or axillary lymphadenopathy. There is no f illing defect in the pulmonary arterial tree to suggest pulmonary embolus. There is no evidence of ao rtic dissection or aneurysm. There is no evidence of pleural or pericardial effusion. The lungs are clear, aside from calcified left lower lobe pulmonary nodule. Images through the upper abdomen reveal probable gallstones. Minimally displaced fracture of the medi al left clavicle noted. Impression: No evidence of pulmonary embolus, aortic dissection, or aortic aneurysm. Clear lungs. Minimally displaced fracture of the medial left clavicle. Cholelithiasis. Reviewed, dictated and finalized at location . RAFT DETAIL DRAFTSPERSON Impression: No evidence of pulmonary embolus, aortic dissection, or aortic aneurysm. Clear lungs. Minimally displaced fracture of the medial left clavicle. Cholelithiasis.
[2023-02-11 22:50] VITALS: BP 113/71; PULSE 81; RESP 18; O2SAT 100
[2023-02-11 23:00] VITALS: BP 113/69; PULSE 69; RESP 18; TEMP 36.4; TEMP 37.4; O2SAT 96
--- NOTE | 2023-02-11 23:00 | ECG_ITS ---
Measurements Intervals [place] Rate: 80 P: 54 ME: 168 QRS: -34 QRSD: 117 T: 61 QT: 407 QTc: 470 Interpretive Statements SINUS RHYTHM LEFT AXIS DEVIATION INCOMPLETE RIGHT BUNDLE BRANCH BLOCK CANNOT RULE OUT SEPTAL INFARCT, AGE INDETERMINATE ABNORMAL ECG COMPARED TO ECG 10/06/2022 07:46:36 LEFT-AXIS DEVIATION NOW PRESENT INCOMPLETE RIGHT BUNDLE-BRANCH BLOCK NOW PRESENT MYOCARDIAL INFARCT FINDING NOW PRESENT Electronically Signed On 02-12-2023 7:11:[address] Farshad Villalta D.O.
--- NOTE | 2023-02-11 23:13 | ED.DIZZY ---
HPI - Dizziness General Chief Complaint: Syncope Stated Complaint: syncope Time Seen by Provider: 02/11/23 22:55 Source: patient Mode of arrival: EMS Limitations: no limitations History of Present Illness HPI Narrative: This is a 52-year-old female with PMH of RA who presents to the ED via EMS with chief complaint of syncopal episode occurring tonight just prior to arrival. 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 Patient reports that she then put her head down and started feeling a little sweaty so she got up to go to the bathroom. Patient states that upon standing up to go to the bathroom she syncopized. She states that the patrons of the bar helps her as she came to several seconds later. Patient admits to drinking 3 shots tonight. She has subsequent complaints of anterior neck and upper chest pain due to the fall. Denies any preceding chest pain, shortness of breath. Denies palpitations, cough, abdominal pain, nausea, vomiting, diarrhea or any other complaint. Of note she does state that she has been scheduled for an echo and a CTA due to her doctor hearing a murmur. Denies VTE history. Per nursing staff, in route EMS measured her blood pressures initially in the 80s systolic. Related Data Home Medications Medication Instructions Recorded Confirmed budesonide-formoterol HFA 160 2 inh inhalation BID 09/04/22 12/05/22 mcg-4.5 mcg/actuation aerosol inhaler (Symbicort) Allergies Allergy/AdvReac Type Severity Reaction Status Date / Time shellfish derived Allergy Unknown Verified 02/12/23 00:02 Review of Systems Review of Systems: All systems as dictated in H[facility] Past Medical History Medical History ADD (attention deficit disorder) Asthma Allergic asthma, allergic to cats which she has in her home Right flank pain Surgical History Surgical History History of incisional hernia repair Repair 22 cm recurrent ventral incisional hernia, removal 22 x 15 cm abdominal wall mesh, extensive adhesiolysis, small-bowel resection with anastomosis Family History Family History Father Diabetes mellitus Mother Colon cancer Breast cancer Social History Social History Years smoked: 40 Smoking status: Current every day smoker Tobacco type: cigarettes Alcohol intake: current Drinks per week: 9 Substance use: current Substance use type: marijuana Last use: SEP 02 2022 Lack of Transportation: YES Lack of Food: Never True Current Housing: I Have Housing Concerned About Future Housing: No Difficulty Paying Gas/Electric Bills: YES Difficulty Paying for Meds: YES Currently Unemployed: YES Education: Bachelor's Degree Difficulty w/ Childcare or Family Care: No Spiritual care concerns: No Exam Narrative: GENERAL: Presents in c-collar. No acute distress. HEAD: Normocephalic, atraumatic. EYES: PERRLA and EOMI. ENT: Nares clear, no rhinorrhea or epistaxis. Mucous membranes moist. Oropharynx without tonsillar hypertrophy exudate or other lesions. NECK: Supple. No adenopathy or masses. CHEST: No respiratory distress. Clear to auscultation. No wheezes rales or rhonchi HEART: Regular rate and rhythm. No murmur heard. Normal peripheral pulses. ABDOMEN: Midline vertical scar to the upper abdomen. Soft, nontender, nondistended, normal active bowel sounds. MSK: Normal range of motion. No edema. SKIN: Warm, dry, no rash. NEURO: Alert and oriented x4. No focal deficits. PSYCH: Normal mood and affect. Course Course Emergency Course: Consult [facility] trauma, Dr. Palm. ([id number]) he recommends that this patient does not need a trauma transfer given that she has no neurovascular compromise, no posterior
[2023-02-11 23:54] LABS: Basophils Absolute Auto 0.1 K/mm3 (0.0-0.1); Basophils Percent Auto 0.6 % (0.2-1.2); Eosinophils Absolute Auto 0.4 K/mm3 (0-0.3); Eosinophils Percent Auto 2.8 % (0-4.4); Hematocrit 41.5 % (37.0-47.0); Hemoglobin 12.9 g/dL (12.0-15.0); Immature Granulocyte Absolute 0.13 K/mm3 (0.00-0.031); Lymphocytes Absolute Auto 3.09 K/mm3 (0.9-3.2); Lymphocytes Percent Auto 24.8 % (18.3-44.2); Mean Corpuscular HGB Conc 31.1 g/dl (32-36); Mean Corpuscular Volume 90.2 fl (80-100); Mean Platelet Volume 9.3 fl (7.4-10.4); Monocytes Absolute Auto 0.9 K/mm3 (0.1-0.6); Monocytes Percent Auto 6.9 % (2.6-8.5); Neutrophils Percent Auto 63.9 % (45.5-73.1); Platelet Count Result 265 k/mm3 (150-375); Red Cell Distribution Width 15.2 % (11.5-14.5); White Blood Count 12.5 K/mm3 (4.5-10.0)
[2023-02-12] VITALS (14 sets, daily range): BP systolic 111–136; BP diastolic 66–84; PULSE 62–85; RESP 17–22; TEMP 36.5–36.8; O2SAT 95–99; BMI 35.3
--- NOTE | 2023-02-12 | ECHO_ITS ---
Patient Info Name: Iveth Grossman Age: 52 years : 1970 Gender: Female Ht: 67 in Wt: 225 lbs BSA: 2.24 m2 HR: 78 bpm BP: 119 / 75 mmHg Heart Rhythm: Sinus Rhythm Technical Quality: Poor Exam Date: 02/12/2023 10:19 AM Exam Location: Echo Lab Exam Room: 240 Patient Status: Inpatient Admit Date: 02/12/2023 Staff Ordering Physician: Joby Aguero MD Fleet Dispatch Manager: Sasha Pulido RDCS Attending Provider: Obdulio Ogden MD Exam Type: CA echo dop bubble study w con Study Info Indications - syncope Complete two-dimentional, color flow and Doppler transthoracic echocardiogram is performed with agitated saline and with contrast to opacify the left ventricle and to improve the delineation of the left ventricle endocardial borders. Contrast/Agitated Saline Contrast/Ag. Saline: Definity Amount: 2.00 ml Administered By: Sasha Pulido [facility] Existing IV Access: Yes IV Access Condition: patent with no signs of infiltration Reason for Poor Study: patient body habitus Summary 1. Left ventricular chamber dimension is normal. 2. Left ventricular systolic function is normal, estimated at 65-70%. 3. There is mildly increased left ventricular wall thickness. 4. The left ventricular diastolic function is grade I diastolic dysfunction. 5. Right ventricular systolic function is normal. 6. There is trace tricuspid valve regurgitation. 7. There is trivial anterior pericardial effusion. Left Ventricle Left ventricular chamber dimension is normal. Left ventricular systolic function is normal, estimated at 65-70%. There is mildly increased left ventricular wall thickness. The left ventricular diastolic function is grade I diastolic dysfunction. Right Ventricle Right ventricular chamber dimension is normal. Right ventricular systolic function is normal. Left Atria Left atrial chamber dimension is normal. Right Atria Right atrial chamber dimension is normal. Atrial Septum Intact interatrial septum visualized by color flow and agitated saline imaging. Aortic Valve The aortic valve is not well visualized. There is no aortic valve stenosis. There is no aortic valve regurgitation. Pulmonic Valve The pulmonic valve is not well visualized. Mitral Valve There is no mitral valve regurgitation. The mitral valve annulus is mildly calcified. Tricuspid Valve There is trace tricuspid valve regurgitation. Pericardium/Pleural The pericardium appears epicardial fat pad. There is trivial anterior pericardial effusion. Inferior Vena Cava Normal inferior vena cava with >50% collapse upon inspiration consistent with normal right atrial pressure, 3 mmHg. Aorta The aortic root size at the sinus of Valsalva is normal. Left Ventricular Outflow Tract Name Value Normal LVOT 2D LVOT Diameter 2.1 cm LVOT Doppler LVOT Peak Gradient 6 mmHg LVOT Mean Gradient 3 mmHg LVOT VTI 23 cm LVOT VTI/AV VTI Ratio 0.8 LVOT Stroke Volume 79 ml LVOT CO 17.9 l/min LVOT CI
[2023-02-12 00:04] LABS: Alanine Aminotransferase 18 U/L (6-35); Albumin Level 3.5 g/dL (3.5-5.1); Alkaline Phosphatase 72 U/L (38-126); Anion Gap 2 mmol/L (8-16); Aspartate Amino Transferase 25 U/L (14-36); Bilirubin,Total 0.4 mg/dL (0.2-1.3); Blood Urea Nitrogen 17 mg/dL (7-17); Calcium 8.6 mg/dL (8.4-10.2); Carbon Dioxide 29 mmol/L (22-30); Chloride 104 mmol/L (98-107); Estimated CRCL calculation 75 ml/min; Estimated Glomerular Filt Rate > 60; Glucose 112 mg/dL (65-110); Potassium 3.7 mmol/L (3.4-5.0); Sodium 135 mmol/L (137-145)
[2023-02-12 00:15] LABS: Troponin I < 0.012 ng/mL (0.000-0.034)
[2023-02-12] MEDS: ONDANSETRON INJ 4 MG/2 ML VIAL IV PUSH (00:17)
[2023-02-12] MEDS: MORPHINE SULFATE (*CRX) 4 MG/ML INJ IV PUSH ×4 (00:17→17:33)
[2023-02-12 01:42] LABS: D Dimer 1.85 ug/mL (<0.48)
--- NOTE | 2023-02-12 05:08 | ADMGEN ---
This patient, Iveth Grossman, was admitted to Medical Room 240-. Patient/family oriented to hospital policies and general routines including ID bracelet, bed and alarms, visiting hours, pain management, procedures, bathroom and other care routines, personal items, smoking policy, room service/diet, and visiting hours. Information on how to activate the Rapid Response Team has been discussed. Patient/Family are encouraged to report perceived risks to care and to ask questions if they do not understand what they are told or what they should do.
--- NOTE | 2023-02-12 09:24 | PM.IMHP ---
H&P: HPI History of Present Illness Date/Time: 02/12/23 09:24 Chief Complaint: Syncope Narrative: 52yo female with Asthma, RA and ADD who presents to the ED via EMS with chief complaint of syncopal episode. 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 She denies palpitations, chest pain, jaw pain, arm pain. She went to sit down but did not feel better. She stood and walked to the bathroom but had a syncopal episode when entering the bathroom. She had incontinence and possible seizure-like activity per bystanders. She was out for several seconds and denies confusion when she awoke. She did have 3 shots of alcohol that night prior to the event. She denies taking her benzodiazepine that night. She smokes marijuana but denies other drug use. She has been feeling well recently and denies fever, chills, lightheadedness, chest pain, SOB, cough, nausea or vomiting. No hx of VTE. No calf pain but has pedal edema worse when siting for prolonged periods and this is more chronic in nature. She has been having frequent stools 2-4x/day since her abdominal surgery in September for an incarcerated hernia. She has a 75# weight loss since November 2021 mostly occurring after her abdominal surgery. She is not up to date on her mammogram or colonoscopy. She has not michelle trying to lose weight. No new medications. Not taking any [id number] medications. 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 She hasn't had these procedures or followed up yet. She does not exercise but does yard work without chest pain. She denies progresively worsening SOB. She does smoke 1ppd x 40yrs. She was brought to the ED for evaluation. In the ED, vitals signs were normal. No orthostatic vitals done on admisison but normal this morning. Although not well documented, it mentions per nursing staff that in route, EMS measured her blood pressures initially in the 80s systolic. EKG showing NSR, LAD, incomplete Rt BBB and possible old septal infarct with these findings being new. Head CT showing no significant abnormality. Cervical spine CT showing no fracture or subluxation. Minimally displaced fracture of the medial left clavicle noted. CTA chest showing no PE, clear lungs and left clavicle fx. WBC was 12K, DDimer was 1.85 and sodium 135 otherwise labs were unremarkable. Troponin negative x1. She does complain of left chest wall pain. She was given morphine and zofran and admitted for further care. Review of Systems Review of Systems: All systems reviewed & are unremarkable except as noted in HPI and below PMFSH Past Medical History Medical History ADD (attention deficit disorder) Asthma Allergic asthma, allergic to cats which she has in her home Rheumatoid arthritis Right flank pain Surgical History Surgical History History of carpal tunnel surgery History of hernia surgery History of incisional hernia repair Repair 22 cm recurrent ventral incisional hernia, removal 22 x 15 cm abdominal wall mesh, extensive adhesiolysis, small-bowel resection with anastomosis S/P RUSTY-BSO Unilateral oophorectomy and BTL first then RUSTY and other ovary resection S/P trigger finger release Family History Family History Father Diabetes mellitus Mother Colon cancer Breast cancer Social History Social History Social History: Lives alone. . Smoke 1ppd x 42 years. has cats. marijuana but denies other drug use or hx of IVDU. Alcohol use anywhere from 0-20 drinks/week. Full code. Does not have a surrogate decision maker. Smoking packs per day: 1 Smoking cigarettes per day: 20.0 Years smoked: 40 Smoking pack-years: 40.00 Smoking status: Current every day smoker
[2023-02-12 10:47] LABS: Troponin I < 0.012 ng/mL (0.000-0.034)
[2023-02-12] MEDS: THIAMINE HCL 100 MG TABLET PO (11:28)
[2023-02-12] MEDS: FOLIC ACID 1 MG TABLET PO (11:28)
[2023-02-12] MEDS: DULoxetine HCL 30 MG CAPSULE.DR PO (11:28)
[2023-02-12] MEDS: LEFLUNOMIDE 10 MG TABLET PO (11:29)
[2023-02-12 11:41] LABS: Folic Acid 10.1 ng/mL (2.76->20)
[2023-02-12] MEDS: SODIUM CHLORIDE 0.9% IV 1,000 ML 100 ML IV CONT (11:57)
--- NOTE | 2023-02-12 13:02 | PM.CNCAR ---
Assessment and Plan Assessment and plan (1) Syncope and collapse: Code(s): R55 - Syncope and collapse Status: Acute Assessment and Plan: Episode of syncope yesterday night. Thus far on telemetry she has not demonstrated any bradycardia, pauses, high degree AV blocks, or tachyarrhythmias to explain syncope. Doubt a cardiac etiology for her syncope. Possibly related to dehydration, though patient is adamant that she has no reason to be dehydrated. She is appropriately receiving IV fluids. Echo has been ordered and will be reviewed. Continue to monitor on telemetry. (2) Abnormal EKG: Code(s): R94.31 - Abnormal electrocardiogram [ECG] [EKG] Status: Acute Assessment and Plan: EKG personally reviewed showing sinus rhythm with leftward axis, incomplete RBBB, and possible old infarct. Incomplete RBBB is new, but otherwise EKG is unchanged from previous. She is currently being seen by a bottom liner at [facility] because of her abnormal EKG. Echo and heart CTA were ordered but not yet performed. Will obtain echo here but she should follow up with the heart CTA at [facility]. Can consider stress testing but in the absence of any chest pain and with negative cardiac enzymes this can be deferred to her bottom liner and be done on an outpatient basis. History of Present Illness History of Present Illness Consult date/time: 02/12/23 13:02 Requesting physician: Joby Aguero MD Consult reason: chest pain Reason For Visit: Syncope, Left Medial Clavicle Fracture Narrative: Ms. Grossman is a 52 year old female who presented to the hospital following a syncopal episode. Cardiology is being consulted for syncope and abnormal EKG. Last night during her shift at work she began to feel light headed and like she was going to pass out. She sat down but continued to feel light headed and became profusely diaphoretic. After some period of sitting down she stood up again and while ambulating to the bathroom she passed out. This was witnessed by several bystanders. She thinks she lost consciousness for about one minute but is unsure. She denies any chest pain, shortness of breath. She does report feeling palpitations when she began feeling weak and light headed. Since the time of admission she has been feeling well and has not had any recurrent symptoms. Currently lying comfortably in bed. Review of Systems Review of Systems: All systems reviewed & are unremarkable except as noted in HPI and below PMFSH Past Medical History Medical History ADD (attention deficit disorder) Asthma Allergic asthma, allergic to cats which she has in her home Rheumatoid arthritis Right flank pain Surgical History Surgical History History of carpal tunnel surgery History of hernia surgery History of incisional hernia repair Repair 22 cm recurrent ventral incisional hernia, removal 22 x 15 cm abdominal wall mesh, extensive adhesiolysis, small-bowel resection with anastomosis S/P RUSTY-BSO Unilateral oophorectomy and BTL first then RUSTY and other ovary resection S/P trigger finger release Family History Family History Father Diabetes mellitus Mother Colon cancer Breast cancer Social History Social History Social History: Lives alone. . Smoke 1ppd x 42 years. has cats. marijuana but denies other drug use or hx of IVDU. Alcohol use anywhere from 0-20 drinks/week. Full code. Does not have a surrogate decision maker. Smoking packs per day: 1 Smoking cigarettes per day: 20.0 Years smoked: 40 Smoking pack-years: 40.00 Smoking status: Current every day smoker Tobacco type: cigarettes Second hand tobacco smoke exposure: Yes Alcohol intake: current Drinks per week: 10 Substance use: cu
--- NOTE | 2023-02-12 14:54 | PCRCNOTE ---
Window of time for administration has passed. See next scheduled administration.
[2023-02-12 15:00] LABS: Amphetamine Screen Urine Negative (Negative); Barbiturate Screen Urine Negative (Negative); Benzodiazepines Screen Urine Negative (Negative); Cannabinoid Screen Urine Positive (Negative); Cocaine Screen Urine Negative (Negative); Methadone Screen Urine Negative (Negative); Opiate Screen Urine Positive (Negative); Phencyclidine Screen Urine Negative (Negative)
[2023-02-12 15:39] LABS: Pregnancy On Board Control Positive; Urine Pregnancy Test Negative
[2023-02-12] MEDS: FLUTICASONE/SALMETEROL 115-21 MCG INHALER 1 PUFF 2 PUFF INHALATION (21:45)
[2023-02-13] VITALS: PULSE 78
[2023-02-13 02:55] VITALS: BP 115/70; PULSE 61; RESP 20; TEMP 36.3; O2SAT 92
[2023-02-13] MEDS: MORPHINE SULFATE (*CRX) 4 MG/ML INJ IV PUSH (04:01)
[2023-02-13 04:42] VITALS: PULSE 76
[2023-02-13 07:53] VITALS: PULSE 94; RESP 20
[2023-02-13] MEDS: FLUTICASONE/SALMETEROL 115-21 MCG INHALER 1 PUFF 2 PUFF INHALATION (07:53)
[2023-02-13 08:00] VITALS: PULSE 71
[2023-02-13] MEDS: ENOXAPARIN 40 MG/0.4 ML SYRINGE SUB-Q (09:12)
[2023-02-13] MEDS: DULoxetine HCL 30 MG CAPSULE.DR PO (09:12)
[2023-02-13] MEDS: THIAMINE HCL 100 MG TABLET PO (09:12)
[2023-02-13] MEDS: MONTELUKAST SODIUM 10 MG TABLET PO (09:12)
[2023-02-13] MEDS: LEFLUNOMIDE 10 MG TABLET PO (09:12)
[2023-02-13] MEDS: FOLIC ACID 1 MG TABLET PO (09:12)
--- NOTE | 2023-02-13 09:49 | PM.DS ---
DS: Admitting Diagnosis Discharge Date 02/13/23 Admitting Diagnosis Syncope DS: Discharge Diagnosis Discharge Diagnosis (1) Syncope and collapse: Code(s): R55 - Syncope and collapse Status: Acute (2) Abnormal EKG: Code(s): R94.31 - Abnormal electrocardiogram [ECG] [EKG] Status: Acute (3) Fracture of left clavicle: Code(s): S42.002A - Fracture of unspecified part of left clavicle, initial encounter for closed fracture Status: Acute (4) Alcoholism: Code(s): F10.20 - Alcohol dependence, uncomplicated Status: Acute (5) Tobacco abuse: Code(s): Z72.0 - Tobacco use Status: Acute (6) Asthma: Qualifiers: Asthma severity: unspecified severity Asthma persistence: intermittent Asthma complication type: uncomplicated Qualified Code(s): J45.20 - Mild intermittent asthma, uncomplicated Code(s): J45.909 - Unspecified asthma, uncomplicated Status: Chronic (7) ADD (attention deficit disorder): Code(s): F98.8 - Other specified behavioral and emotional disorders with onset usually occurring in childhood and adolescence Status: Acute (8) Rheumatoid arthritis: Qualifiers: Rheumatoid arthritis location: multiple sites Rheumatoid factor presence: unspecified presence Qualified Code(s): M06.9 - Rheumatoid arthritis, unspecified Code(s): M06.9 - Rheumatoid arthritis, unspecified Status: Acute (9) Rib fractures: Code(s): S22.49XA - Multiple fractures of ribs, unspecified side, initial encounter for closed fracture Status: Acute DS: Summary Hospital Course Reason for hospitalization: 52yo female with Asthma, RA and ADD who presents to the ED via EMS with chief complaint of syncopal episode.?Please see H&P for details Hospital Course: In the ED, vitals signs were normal. No orthostatic vitals done on admission but normal the next morning. Although not well documented, it mentions per nursing staff that in route, EMS measured her blood pressures initially in the 80s systolic. EKG showing NSR, LAD, incomplete Rt BBB and possible old septal infarct with these findings being new.? Head CT showing no significant abnormality. Cervical spine CT showing no fracture or subluxation. Minimally displaced fracture of the medial left clavicle noted. CTA chest showing no PE, clear lungs and left clavicle fx.? WBC was 12K, DDimer was 1.85 and sodium 135 otherwise labs were unremarkable. Troponin negative x1. She does complain of left chest wall pain. LE venous doppler negative for DVT. Rib xray showing nondisplaced posterolateral left 8th and 9th rib fractures. Etiology of the syncopal episode could be dehydration related to her frequent stools and recent weight loss coupled with her alcohol use. She is not on diuretics. She does have an abnormal EKG which is currently being evaluated by her director of physical security at [facility]. Echo showing EF 65-70%, Grade I diastolic dysfunction and trace valvular disease. No wall motion abnormalities. She was monitored on telemetry but no significant dysrhythmias noted. Cardiology consulted but did recommend ischemia evaluation at this time. She was given IV fluids. UDS positive for marijuana (which she admits to using) and opiates (but received Morphine for pain in ED). test negative. Patient was vague about her alcohol use. We started thiamine and folate. She was placed on CIWA protocol. No evidence of withdrawal. She did state that a bystander thought she was shaking and she did have urine incontinence but no tongue biting or confusion upon waking. She had been drinking alcohol prior to the event and never had withdrawal symptoms in the past so felt seizure less likely and more likely related to dehydration. Due to abundance of caution however, will have her not drive until seen by her doctor. Left upper extremity was placed in a sling. [facility] was consulted and case discussed with ED provider
== END 2023-02-13 10:40 | disposition home or self-care (01) ==
LOC: ANHED 02-12 03:22 → ANH2MED 02-12 04:44
PROVIDERS: Admitting Provider Internal Medicine; Emergency Provider Physician Assistant; PCP Nurse Practitioner Family; Visit Provider Internal Medicine
DX: R55 Syncope and collapse (principal); S42.012A Anterior displaced fracture of sternal end of left clavicle, initial encounter for closed fracture; S22.42XA Multiple fractures of ribs, left side, initial encounter for closed fracture; M54.2 Cervicalgia; K80.20 Calculus of gallbladder without cholecystitis without obstruction; M06.9 Rheumatoid arthritis, unspecified; F98.8 Other specified behavioral and emotional disorders with onset usually occurring in childhood and adolescence; J45.909 Unspecified asthma, uncomplicated; I51.89 Other ill-defined heart diseases; R10.9 Unspecified abdominal pain; R79.1 Abnormal coagulation profile; R94.31 Abnormal electrocardiogram [ECG] [EKG]; F17.210 Nicotine dependence, cigarettes, uncomplicated; F10.20 Alcohol dependence, uncomplicated; F12.90 Cannabis use, unspecified, uncomplicated; Z79.51 Long term (current) use of inhaled steroids; Z79.899 Other long term (current) drug therapy
CPT/HCPCS: 36415; 70450; 71100; 71275; 72125; 80053; 80307; 81025; 82607; 82746; 84443; 84484; 85025; 85380; 93005; 93970; 94640; 96361; 96372; 96374; 96375; 96376; 99285; A4565; A9270; C8929; G0378; G0379; J1650; J2270; J2405; J7030; Q9967

== ENCOUNTER 2023-03-04 13:20 | Outpatient (CLI) | payer OTHER, SELFPAY ==
--- NOTE | ~2023-03-04 | MM_ITS ---
EXAMINATION: MM screening [facility] BI w osvaldo HISTORY: Screening mammogram TECHNIQUE: Craniocaudal and mediolateral oblique 3-D tomosynthesis images were obtained and synthetic 2-D images were generated. CAD analysis was submitted and interpreted. COMPARISON: No prior mammogram is available for comparison at this institution. BREAST PARENCHYMAL COMPOSITION: There are scattered areas of fibroglandular density. FINDINGS: There is a rounded 4.8 mm circumscribed opacity in the lower outer quadrant of the left eric ast. Diagnostic left mammogram and left breast ultrasound examination are recommended. Smaller nodular densities are noted in the lower inner quadrant of the right breast. Diagnostic right mammogram and right breast ultrasound examination are recommended. IMPRESSION: 1. Bilateral nodular densities 2. Bilateral diagnostic mammography and breast ultrasound examination are recommended BI-RADS Category 0: Incomplete: Needs additional imaging evaluation. Reviewed, dictated and finalized at location A. NIGHT IMPRESSION: 1. Bilateral nodular densities 2. Bilateral diagnostic mammography and breast ultrasound examination are recom mended BI-RADS Category 0: Incomplete: Needs additional imaging evaluation.
== END 2023-03-04 13:21 | disposition home or self-care (01) ==
LOC: CHSIMG 13:21
PROVIDERS: PCP Nurse Practitioner Family; Visit Provider Nurse Practitioner Family
DX: Z12.31 Encounter for screening mammogram for malignant neoplasm of breast (principal); R92.8 Other abnormal and inconclusive findings on diagnostic imaging of breast
CPT/HCPCS: 77063; 77067

== ENCOUNTER 2023-03-27 08:55 | Outpatient (CLI) | payer OTHER, SELFPAY ==
--- NOTE | ~2023-03-27 | MMUS_ITS ---
EXAMINATION: MM diagnostic rut BI w osvaldo, US breast BI limited HISTORY: Follow-up breast asymmetries TECHNIQUE: Additional 3-D tomosynthesis images of the breasts were performed and synthetic 2-D images were generated. CAD analysis was submitted and interpreted. High resolution limited bilateral breast ultrasound was performed. COMPARISON: 03/04/2023 BREAST PARENCHYMAL COMPOSITION: Breast composed of scattered areas of fibroglandular density FINDINGS: MAMMOGRAPHIC FINDINGS: Focal asymmetry medially in the right breast is less apparent with spot compression views. No discret e mass. No suspicious architectural distortion or abnormal clustered calcification. In the left breas t there is a small mass upper outer quadrant of the left breast which is partially obscured by fibrog landular tissue. ULTRASOUND: Limited right breast ultrasound: At 3:00 5 cm from the nipple, there is an oval parallel oriented hyp oechoic mass with circumscribed margins, no significant posterior features and no internal vascularit y. There are low level internal echoes. At 6:00, 5 cm from the nipple there is a 4 mm cyst. At 6:00, 5 cm from the nipple there is an oval hypoechoic structure with parallel orientation, low level inter nal echoes, no posterior features or internal vascularity measuring 9 x 5 x 3 mm, likely benign. Limited left breast ultrasound: At 3:00, 3 cm from the nipple, there is an oval hypoechoic mass with partial internal septation and low level internal echoes measuring 6 mm. No internal vascularity. Thi s mass may correspond to the area of mammographic abnormality. IMPRESSION: 1. Probable benign bilateral breast masses. 2. Recommend 6 month follow-up diagnostic bilateral mammogram and ultrasound recommended. BI-RADS category 3, probably benign findings. Reviewed, dictated and finalized at location A. RANGER IMPRESSION: 1. Probable benign bilateral breast masses. 2. Recommend 6 month follow-up diagnostic bilateral mammogram and ultrasound re commended. BI-RADS category 3, probably benign findings.
== END 2023-03-27 08:56 | disposition home or self-care (01) ==
LOC: CHSIMG 08:57
PROVIDERS: PCP Nurse Practitioner Family; Visit Provider Nurse Practitioner Family
DX: R92.8 Other abnormal and inconclusive findings on diagnostic imaging of breast (principal)
CPT/HCPCS: 76642; 77062; 77066; G0279

== ENCOUNTER 2023-04-01 12:14 | Outpatient (CLI) | payer OTHER, SELFPAY ==
[2023-04-01 13:01] LABS: SARS-CoV-2 RNA PCR Negative (Negative)
[2023-04-01 13:02] LABS: Influenza A QL RT-PCR Negative (Negative); Influenza B QL RT-PCR Negative (Negative)
== END 2023-04-01 12:15 | disposition home or self-care (01) ==
LOC: CHSLAB 12:15
PROVIDERS: PCP Nurse Practitioner Family; Visit Provider Nurse Practitioner Family
DX: Z20.822 Contact with and (suspected) exposure to COVID-19 (principal); R05.9 Cough, unspecified
CPT/HCPCS: 87636

== ENCOUNTER 2023-05-25 14:17 | Emergency (ER) | payer OTHER, SELFPAY ==
--- NOTE | ~2023-05-25 | CT_ITS ---
EXAMINATION: CT abdomen pelvis w con DATE: 05/25/2023 15:55 INDICATION: Abdominal mass and distention TECHNIQUE: Computed tomography (CT) of the abdomen and pelvis was performed with 100 mL Omnipaque-350 intravenous contrast. Automated exposure control and iterative reconstruction technique were employe d. The dose-length product was 1228.96 mGy-cm. COMPARISON: 10/13/2022 and 10/06/2022 FINDINGS: Cancer calcified nodules in the left lower lobe, one within a thin-walled cavitary lesion along with calcified left hilar lymph nodes and multiple splenic ossifications, all consistent with old granulom atous disease. Multiple calcified gallstones in the dependent aspect of the normal-appearing gallblad sudhir. Liver, pancreas, bilateral adrenal glands are normal. Bilateral nonobstructing nephrolithiasis w ith 2 stones in the left kidney and 2 stones in the right kidney, the largest on the left measuring 3 mm. Linear band of discoid atelectasis/scarring in the dependent aspect of the bilateral lower lobes. He art size is normal. No pericardial or pleural effusion. Distal ileal anastomosis. No bowel obstructio n. The appendix is not visualized. No pericecal inflammatory change to suggest acute appendicitis. Ag ain seen are postoperative change of prior ventral hernia repair. There is been interval decrease in size of a loculated subcutaneous fluid collection along the superficial margin of the right anterior abdominal wall which previously measured 21.1 x 8.0 x 14.9 cm and currently measures 14.8 x 9.0 x 7.5 cm. Bladder is normal. The uterus is not identified and has likely been surgically resected. No free intraperitoneal gas or fluid No pathologically enlarged abdominal or pelvic lymphadenopathy. Severe lower lumbar spondylosis.. IMPRESSION: 1. Interval decrease in size of a now 14.8 x 9.0 x 7.1 cm loculated subcutaneous fluid collection mandy ng the midline anterior abdominal wall overlying the site of a prior ventral hernia repair most likel y representing a seroma although differential would include abscess in the appropriate clinical setti ng. 2. Cholelithiasis. 3. Bilateral nonobstructing nephrolithiasis. Reviewed, dictated and finalized at location A. ER REPAIRMAN IMPRESSION: 1. Interval decrease in size of a now 14.8 x 9.0 x 7.1 cm loculated subcutaneou s fluid collection along the midline anterior abdominal wall overlying the site of a prior ventral hernia repair most likely representing a seroma although di fferential would include abscess in the appropriate clinical setting. 2. Cholelithiasis. 3. Bilateral nonobstructing nephrolithiasis.
[2023-05-25 14:20] VITALS: BP 111/73; PULSE 99; RESP 14; TEMP 36.4; O2SAT 96
--- NOTE | 2023-05-25 14:53 | ED.GENADULT ---
HPI - General Adult General Chief complaint: Abdominal Pain Stated complaint: abdominal injury Time Seen by Provider: 05/25/23 14:19 History of Present Illness HPI narrative: 52yo woman history of multiple abdominal surgeries presents with one week of an increased distension and mass at the ventral inferior abdominal incision. +constipation, but still able to pass gas and had a hard bowel movement this morning. No fevers or chills. No dysuria. No vomiting. Related Data Home Medications Medication Instructions Recorded Confirmed leflunomide 10 mg tablet 10 mg PO DAILY 02/12/23 02/16/23 Allergies Allergy/AdvReac Type Severity Reaction Status Date / Time shellfish derived Allergy Unknown Verified 05/25/23 14:19 Review of Systems Review of Systems: All systems reviewed & are unremarkable except as noted in HPI and below Constitutional: Constitutional: Denies chills and Denies fever(s) ENT: Denies dysphagia Cardiovascular: Cardiovascular: Denies chest pain Respiratory: Respiratory: Denies dyspnea Gastrointestinal: Gastrointestinal: Reports bloating, Reports constipation, Denies diarrhea and Denies vomiting PMFSH Past Medical History Medical History ADD (attention deficit disorder) Asthma Allergic asthma, allergic to cats which she has in her home Rheumatoid arthritis Right flank pain Surgical History Surgical History History of carpal tunnel surgery History of hernia surgery History of incisional hernia repair Repair 22 cm recurrent ventral incisional hernia, removal 22 x 15 cm abdominal wall mesh, extensive adhesiolysis, small-bowel resection with anastomosis S/P RUSTY-BSO Unilateral oophorectomy and BTL first then RUSTY and other ovary resection S/P trigger finger release Family History Family History Father Diabetes mellitus Mother Colon cancer Breast cancer Social History Social History Social History: Lives alone. . Smoke 1ppd x 42 years. has cats. marijuana but denies other drug use or hx of IVDU. Alcohol use anywhere from 0-20 drinks/week. Full code. Does not have a surrogate decision maker. Smoking packs per day: 1 Smoking cigarettes per day: 20.0 Years smoked: 40 Smoking pack-years: 40.00 Smoking status: Current every day smoker Tobacco type: cigarettes Second hand tobacco smoke exposure: Yes Alcohol intake: current Drinks per week: 10 Substance use: current Substance use type: marijuana Last use: 02/11/23 Lack of Transportation: YES Lack of Food: Sometimes True Current Housing: I Have Housing Concerned About Future Housing: No Difficulty Paying Gas/Electric Bills: YES Difficulty Paying for Meds: YES Currently Unemployed: YES Education: Bachelor's Degree Difficulty w/ Childcare or Family Care: No Spiritual care concerns: No Exam Const: General: healthy appearing and no acute distress Nutritional Appearance: well nourished HENMT: Head: normal to inspection Eyes: Conjunctivae: conjunctivae normal Resp: Effort & Inspection: normal respiratory effort and not labored Auscultation: clear to auscultation bilaterally Cardio: Rate: regular rate Rhythm: regular rhythm Heart sounds: no murmurs GI: Inspection: distended GI Palp: Yes Soft to palpation, Yes Tenderness to palpation present (GI) and Yes Palpable mass present Other: suprapubic subcutaneous firm mass consistent with ventral hernia; reduction attempt produces some palpable peristalsis but minimal reduction in the size of the mass; will re-attempt under analgesia Skin: General skin exam: normal color, no jaundice and no pallor Neuro: General: patient oriented x3 and moves all extremities Speech: normal speech Gait exam (Neuro): Normal gait p
[2023-05-25 15:04] LABS: Basophils Absolute Auto 0.04 K/mm3 (0.00-0.10); Basophils Percent Auto 0.4 % (0.0-1.0); Eosinophils Absolute Auto 0.24 K/mm3 (0.02-0.50); Eosinophils Percent Auto 2.6 % (1.0-6.0); Hematocrit 40.2 % (35.0-49.0); Hemoglobin 13.4 g/dL (12.0-15.0); Immature Granulocyte Absolute 0.03 K/mm3 (0.00-0.00); Immature Granulocyte Percent A 0.3 % (0.0-0.0); Lymphocytes Absolute Auto 2.77 K/mm3 (1.10-4.50); Lymphocytes Percent Auto 29.7 % (18.0-42.0); Mean Corpuscular HGB Conc 33.3 g/dL (32.0-36.0); Mean Corpuscular Hemoglobin 28.9 pg (27.0-31.0); Mean Corpuscular Volume 86.6 fL (78.0-102.0); Mean Platelet Volume 9.1 fl (9.2-11.8); Monocytes Absolute Auto 0.87 K/mm3 (0.10-0.90); Monocytes Percent Auto 9.3 % (2.0-11.0); Neutrophils Absolute Auto 5.4 K/mm3 (1.7-7.2); Neutrophils Percent Auto 57.7 % (50.0-70.0); Platelet Count Result 287 K/mm3 (150-420); Red Blood Count 4.64 M/mm3 (4.20-5.40); Red Cell Distribution Width 12.8 % (11.6-14.4); White Blood Count 9.3 K/mm3 (4.8-10.8)
[2023-05-25] MEDS: SODIUM CHLORIDE 0.9% IV 1,000 ML 999 ML IV CONT (15:06)
[2023-05-25] MEDS: diphenhydrAMINE HCl INJ 50 MG/ML VIAL 25 MG IV PUSH (15:08)
[2023-05-25] MEDS: ONDANSETRON INJ 4 MG/2 ML VIAL 8 MG IV PUSH (15:08)
[2023-05-25] MEDS: HYDROmorphone HCL INJ (*CRX) 2 MG/ML VIAL 1 MG IV PUSH (15:10)
[2023-05-25 15:15] VITALS: BP 117/68; PULSE 71; RESP 16; O2SAT 93
[2023-05-25 15:16] VITALS: BP 107/74; PULSE 70; RESP 15; O2SAT 93
[2023-05-25 15:19] LABS: Alanine Aminotransferase 15 U/L (14-59); Albumin Level 2.4 g/dL (3.4-5.0); Alkaline Phosphatase 95 U/L (46-116); Anion Gap 6 mmol/L (8-16); Aspartate Amino Transferase 14 U/L (15-37); Bilirubin,Total 0.5 mg/dL (0.00-1.00); Blood Urea Nitrogen 13 mg/dL (7-18); Calcium 8.3 mg/dL (8.5-10.1); Carbon Dioxide 31 mmol/L (21-32); Chloride 101 mmol/L (98-108); Estimated CRCL calculation 80 ml/min; Estimated Glomerular Filt Rate > 60; Glucose 109 mg/dL (70-99); Magnesium 2.1 mg/dL (1.8-2.4); Osmolality Calculated 287 mOsm/kg (285-295); Sodium 138 mmol/L (136-145); Total Protein 6.7 g/dL (6.4-8.2)
[2023-05-25 15:22] LABS: Lactic Acid Reflex 0.7 mmol/L (0.4-2.0)
[2023-05-25 15:30] VITALS: O2SAT 98
[2023-05-25 15:42] VITALS: BP 118/71; PULSE 65; RESP 16; O2SAT 94
[2023-05-25 16:14] VITALS: BP 121/65; PULSE 78; RESP 18; TEMP 36.3; O2SAT 98
== END 2023-05-25 16:14 | disposition home or self-care (01) ==
PROVIDERS: Emergency Provider Emergency Medicine; PCP Nurse Practitioner Family
DX: K43.9 Ventral hernia without obstruction or gangrene (principal); F17.210 Nicotine dependence, cigarettes, uncomplicated
CPT/HCPCS: 36415; 74177; 80053; 83605; 83735; 85025; 96361; 96374; 96375; 99284; J1170; J1200; J2405; J7030; Q9967

== ENCOUNTER 2023-06-02 12:20 | Observation (INO) | payer OTHER, SELFPAY ==
[2023-06-02] VITALS (8 sets, daily range): BP systolic 94–125; BP diastolic 56–84; PULSE 74–98; RESP 16–18; TEMP 36.2–36.6; O2SAT 97–100; BMI 33.7
--- NOTE | ~2023-06-02 | CT_ITS ---
EXAMINATION: CT abdomen pelvis w con DATE: 06/02/2023 13:40 INDICATION: Abdominal mass. TECHNIQUE: Computed tomography (CT) of the abdomen and pelvis was performed with 100 mL Omnipaque 350 intravenous contrast. Automated exposure control and iterative reconstruction technique were employe d. The dose-length product was 1127.35 mGy-cm. COMPARISON: CT abdomen and pelvis 05/25/2023 FINDINGS: The visualized portions of the lung bases demonstrate mild atelectasis. No pleural effusion . The heart size is normal. No pericardial effusion. The liver is normal. There are gallstones in the gallbladder, which is normal in size. Calcifications in the spleen are consistent with old granuloma tous disease. The pancreas and adrenal glands are normal. There are 2 stones in right kidney measurin g up to 3 mm. There are 2 stones in left kidney measuring up to 4 mm. There are no dilated loops of b owel. There is an anastomosis in the ileum. There is a subcutaneous midline incision with residual th ick-walled subcutaneous fluid collection measuring 10.2 x 8.4 x 1.4 cm. There are no pathologically e nlarged lymph nodes. There is no free intraperitoneal fluid. There is severe lumbar spondylosis. IMPRESSION: 1. 10.2 x 8.4 x 1.4 cm thick-walled subcutaneous fluid collection in anterior abdominal wall with int erval decrease in size status post incision and drainage. Reviewed, dictated and finalized at location A. ING MIXER SUPERVISOR IMPRESSION: 1. 10.2 x 8.4 x 1.4 cm thick-walled subcutaneous fluid collection in anterior a bdominal wall with interval decrease in size status post incision and drainage.
--- NOTE | 2023-06-02 12:22 | ED.SKABFB ---
HPI - Skin/Abscess/Foreign Bdy General Chief complaint: Skin/Abscess/Foreign Body Stated complaint: abdominal abscess Time Seen by Provider: 06/02/23 12:22 Source: patient Mode of arrival: ambulatory Limitations: no limitations History of Present Illness HPI narrative: patient is a 52-year-old female with an abdominal pain and redness with some oozing for the past week. She was here last week and was discharged from the emergency room for a seroma and to follow-up with her primary doctor. CT scan was negative for GI involvement last week. MD complaint: rash ( Mid abdomen at prior scar site from a prior bowel obstruction; small opening with pus and blood) Onset (ago): week(s) (1) Tetanus up to date: unsure Severity: moderate Severity scale (1-10): 5 Quality: burning and sharp Pain Consistency: intermittent Relieving factors: immobilization Exacerbating factors: palpation Context: none Associated symptoms: denies other symptoms Related Data Home Medications Medication Instructions Recorded Confirmed leflunomide 10 mg tablet 10 mg PO DAILY 02/12/23 06/02/23 Allergies Allergy/AdvReac Type Severity Reaction Status Date / Time shellfish derived Allergy Unknown Verified 06/02/23 12:40 Review of Systems Review of Systems: All systems reviewed & are unremarkable except as noted in HPI and below Constitutional: Constitutional: Reports no additional constitutional complaints Eyes: Eyes: Reports no additional eye complaints ENT: Reports system reviewed and no additional complaints, except as documented Cardiovascular: Cardiovascular: Reports no additional cardiovascular complaints Respiratory: Respiratory: Reports no additional respiratory complaints Gastrointestinal: Gastrointestinal: Reports no additional gastrointestinal complaints Genitourinary: Genitourinary: Reports no additional female genitourinary complaints Musculoskeletal: Musculoskeletal: Reports no additional musculoskeletal complaints Integumentary/Breasts: Skin/Breast: Reports system reviewed and no additional complaints, except as docu Neurologic: Reports system reviewed and no additional complaints, except as documented Psychiatric: Psychiatric: Reports no additional psychiatric complaints Endocrine: Endocrine: Reports no additional endocrine complaints Hematologic/Lymphatic: Hematologic/Lymphatic: Reports no additional hematologic/lymphatic complaints Allergic/Immunologic: Allergic/Immunologic: Reports no additional allergic/immunologic complaints PMFSH Past Medical History Medical History ADD (attention deficit disorder) Asthma Allergic asthma, allergic to cats which she has in her home Rheumatoid arthritis Right flank pain Surgical History Surgical History History of carpal tunnel surgery History of hernia surgery History of incisional hernia repair Repair 22 cm recurrent ventral incisional hernia, removal 22 x 15 cm abdominal wall mesh, extensive adhesiolysis, small-bowel resection with anastomosis S/P RUSTY-BSO Unilateral oophorectomy and BTL first then RUSTY and other ovary resection S/P trigger finger release Family History Family History Father Diabetes mellitus Mother Colon cancer Breast cancer Social History Social History Social History: Lives alone. . Smoke 1ppd x 42 years. has cats. marijuana but denies other drug use or hx of IVDU. Alcohol use anywhere from 0-20 drinks/week. Full code. Does not have a surrogate decision maker. Smoking packs per day: 1 Smoking cigarettes per day: 20.0 Years smoked: 40 Smoking pack-years: 40.00 Smoking status: Current every day smoker Tobacco type: cigarettes Second hand tobacco smoke exposure: Yes Alcohol intake: current Drinks per week: 10
--- NOTE | 2023-06-02 12:46 | PC.NURSE ---
Pt has a large vertical scar from a previous surgery for a bowel obstruction. Pt has a open, punctured pin point area under her umbilicus area with bloody drainage. Pt denies any injury to the area. Pt was seen her last Thursday for the pain to the area but did not have an opening in the skin until today. Pt has a large area of redness 15cm x 12 cm to the surrounds area of the abdomen around the wound.
[2023-06-02 12:48] LABS: Basophils Absolute Auto 0.07 K/mm3 (0.00-0.10); Basophils Percent Auto 0.6 % (0.0-1.0); Eosinophils Absolute Auto 0.46 K/mm3 (0.02-0.50); Eosinophils Percent Auto 4.2 % (1.0-6.0); Hematocrit 42.2 % (35.0-49.0); Hemoglobin 13.9 g/dL (12.0-15.0); Immature Granulocyte Absolute 0.16 K/mm3 (0.00-0.00); Immature Granulocyte Percent A 1.4 % (0.0-0.0); Lymphocytes Absolute Auto 2.91 K/mm3 (1.10-4.50); Lymphocytes Percent Auto 26.3 % (18.0-42.0); Mean Corpuscular HGB Conc 32.9 g/dL (32.0-36.0); Mean Corpuscular Hemoglobin 28.5 pg (27.0-31.0); Mean Corpuscular Volume 86.5 fL (78.0-102.0); Mean Platelet Volume 8.1 fl (9.2-11.8); Monocytes Absolute Auto 0.71 K/mm3 (0.10-0.90); Monocytes Percent Auto 6.4 % (2.0-11.0); Neutrophils Absolute Auto 6.8 K/mm3 (1.7-7.2); Neutrophils Percent Auto 61.1 % (50.0-70.0); Platelet Count Result 467 K/mm3 (150-420); Red Blood Count 4.88 M/mm3 (4.20-5.40); Red Cell Distribution Width 12.6 % (11.6-14.4); White Blood Count 11.1 K/mm3 (4.8-10.8)
--- NOTE | 2023-06-02 12:52 | PC.NURSE ---
PT questioned about her shellfish allergy due to CT scan order. Pt states, I have had several CT scans in the past and never needed anything for the scan. ERP made aware.
[2023-06-02] MEDS: PIPERACILLN/TAZ 3.375GM/NS50ML 3.375 GM/50 ML BAG IVPB ×2 (13:03→19:59)
[2023-06-02 13:06] LABS: Alanine Aminotransferase 17 U/L (14-59); Albumin Level 2.6 g/dL (3.4-5.0); Alkaline Phosphatase 106 U/L (46-116); Anion Gap 8 mmol/L (8-16); Aspartate Amino Transferase 11 U/L (15-37); Bilirubin,Total 0.3 mg/dL (0.00-1.00); Blood Urea Nitrogen 11 mg/dL (7-18); Calcium 8.7 mg/dL (8.5-10.1); Carbon Dioxide 31 mmol/L (21-32); Chloride 100 mmol/L (98-108); Estimated Glomerular Filt Rate > 60; Glucose 109 mg/dL (70-99); Osmolality Calculated 288 mOsm/kg (285-295); Potassium 3.7 mmol/L (3.5-5.1); Sodium 139 mmol/L (136-145); Total Protein 7.4 g/dL (6.4-8.2)
[2023-06-02 13:08] LABS: Lactic Acid Reflex 1.4 mmol/L (0.4-2.0)
--- NOTE | 2023-06-02 13:24 | PC.NURSE ---
PT had a copious amount of drainage on her disposable jennie from when she changed positions. Pt has bloody, purulent drainage from her wound site.
--- NOTE | 2023-06-02 14:35 | PC.NURSE ---
Pt asked if this RN could get a list of her medications. PT states, actually I haven't taken them in several weeks because I haven't been able to get to the pharmacy & what you have on file is what I'm suppose to be on.
[2023-06-02] MEDS: LIDOCAINE HCL 1% LOCAL INJ 10 ML VIAL INFILTRATE (14:40)
--- NOTE | 2023-06-02 14:59 | PC.NURSE ---
Pictures taken of the wound with patient sticker and measuring device per floor request.
--- NOTE | 2023-06-02 15:00 | PC.NURSE ---
Pt Room number is 204. Room assignment given at [id number], but nurse unavailable to take report until she arrives. Awaiting ERP to pack wound before the patient goes to the floor.
--- NOTE | 2023-06-02 15:13 | PCDIET ---
ERP at bedside with patient packing wound.
--- NOTE | 2023-06-02 16:29 | ADMGEN ---
This patient, Iveth Grossman, was admitted to 2nd Floor Room 204-1. Patient/family oriented to hospital policies and general routines including ID bracelet, bed and alarms, visiting hours, pain management, procedures, bathroom and other care routines, personal items, smoking policy, room service/diet, and visiting hours. Pt belongings form placed in chart, purse and belongings bag sent up from er and placed at bedside, pt inquires about getting dinner, dietary will come up for order Information on how to activate the Rapid Response Team has been discussed. Patient/Family are encouraged to report perceived risks to care and to ask questions if they do not understand what they are told or what they should do.
--- NOTE | 2023-06-02 16:30 | PC.NURSE ---
abd/medipore tape applied to packing site on abdomen, reddened area traced with wound marker and measured, call light in reach
[2023-06-02] MEDS: FLUTICASONE PROPIONATE 0.05% NA SPR 16 GM BTL (*BKC) 1 SPRAY NASAL (17:08)
[2023-06-02] MEDS: MONTELUKAST SODIUM 10 MG TABLET BY MOUTH (17:08)
[2023-06-02] MEDS: HYDROcodone/acetaminophen (*CRX) 5-325 MG TABLET 1 TAB PO (17:09)
[2023-06-02] MEDS: BUDESONIDE/FORMOTEROL (*SP) 160-4.5 MCG 6 GM INH 2 PUFF INHALATION (18:36)
--- NOTE | 2023-06-02 19:55 | PC.NURSE ---
abd drainage had soaked through ABD and onto pt gown, cleansed area with wound cleanser, applied 4x4 gauze with ABD on top and medipore tape, new gown applied, call light in reach
[2023-06-03] VITALS: BP 94/54; PULSE 86; RESP 16; TEMP 36.7; O2SAT 95
[2023-06-03] MEDS: HYDROcodone/acetaminophen (*CRX) 5-325 MG TABLET 1 TAB PO (01:04)
[2023-06-03] MEDS: PIPERACILLN/TAZ 3.375GM/NS50ML 3.375 GM/50 ML BAG IVPB ×3 (04:02→20:42)
[2023-06-03] MEDS: BUDESONIDE/FORMOTEROL (*SP) 160-4.5 MCG 6 GM INH 2 PUFF INHALATION ×2 (05:35→18:51)
--- NOTE | 2023-06-03 07:38 | PM.IMHP ---
H&P: HPI History of Present Illness Date/Time: 06/03/23 07:38 [facility] Past Medical History Medical History ADD (attention deficit disorder) Asthma Allergic asthma, allergic to cats which she has in her home Rheumatoid arthritis Right flank pain Surgical History Surgical History History of carpal tunnel surgery History of hernia surgery History of incisional hernia repair Repair 22 cm recurrent ventral incisional hernia, removal 22 x 15 cm abdominal wall mesh, extensive adhesiolysis, small-bowel resection with anastomosis S/P RUSTY-BSO Unilateral oophorectomy and BTL first then RUSTY and other ovary resection S/P trigger finger release Family History Family History Father Diabetes mellitus Mother Colon cancer Breast cancer Social History Social History Social History: Lives alone. . Smoke 1ppd x 42 years. has cats. marijuana but denies other drug use or hx of IVDU. Alcohol use anywhere from 0-20 drinks/week. Full code. Does not have a surrogate decision maker. Smoking packs per day: 0.5 Smoking cigarettes per day: 10.0 Years smoked: 42 Smoking pack-years: 21.00 Smoking status: Current every day smoker Tobacco type: cigarettes Second hand tobacco smoke exposure: Yes Alcohol intake: current Drinks per week: 1 Substance use: current Substance use type: marijuana Last use: 06/02/23 Do You Feel Safe in your Home?: Yes Lack of Transportation: YES Lack of Food: Never True Current Housing: I Have Housing Concerned About Future Housing: No Difficulty Paying Gas/Electric Bills: No Difficulty Paying for Meds: No Currently Unemployed: YES Education: Bachelor's Degree Difficulty w/ Childcare or Family Care: No Spiritual care concerns: No Meds Home Medications and Allergies Home Medications Medication Instructions Recorded Confirmed Type duloxetine 30 mg capsule,delayed 30 mg PO DAILY #30 caps 10/01/22 06/02/23 Rx release (Cymbalta) leflunomide 10 mg tablet 10 mg PO DAILY 02/12/23 06/02/23 History meloxicam 15 mg tablet 15 mg PO DAILY #30 tabs 02/16/23 06/02/23 Rx hydrocodone 5 mg-acetaminophen 325 1 tablet PO Q8H PRN pain #30 tabs 03/11/23 06/02/23 Rx mg tablet montelukast 10 mg tablet See Rx Instructions .Route 03/12/23 06/02/23 Rx .COMPLEX #30 tabs dextromethorphan-guaifenesin 10 10 ml PO Q4-6H PRN cough #236 mL 04/01/23 06/02/23 Rx mg-100 mg/5 mL oral liquid budesonide-formoterol HFA 160 See Rx Instructions .Route 04/13/23 06/02/23 Rx mcg-4.5 mcg/actuation aerosol .COMPLEX #10.2 ea inhaler (Symbicort) fluticasone propionate 50 See Rx Instructions .Route 05/29/23 06/02/23 Rx mcg/actuation nasal .COMPLEX #16 mL spray,suspension Allergies Allergy/AdvReac Type Severity Reaction Status Date / Time shellfish derived Allergy Unknown Verified 06/02/23 12:40 Vital Signs Vital Signs - 24 hr 06/02/23 12:22 06/02/23 13:16 06/02/23 13:50 Temperature 36.4 C Pulse Rate 98 85 81 Respiratory Rate 16 16 18 Blood Pressure 125/82 110/77 117/84 Pulse Oximetry 99 97 97 Oxygen Delivery Room Air Room Air Room Air 06/02/23 14:09 06/02/23 14:45 06/02/23 15:21 Temperature 36.5 C Pulse Rate 75 78 74 Respiratory Rate 18 16 16 Blood Pressure 100/62 97/58 L 94/56 L Pulse Oximetry 100 99 97 Oxygen Delivery Room Air Room Air 06/02/23 15:15 06/02/23 16:04 06/03/23 00:00 Temperature 36.6 C 36.2 C L 36.7 C Pulse Rate 77 76 86 Respiratory Rate 16 18 16 Blood Pressure 110/75 108/65 94/54 L Pulse Oximetry 97 97 95 Oxygen Delivery Room Air Room Air Room Air H&P: Results Labs Labs: Short CBC 06/02/23 Range/Units 12:45 WBC 11.1 H (4.8-10.8) K/mm3 Hgb 13.9 (12.0-15.0) g/dL Hct 42.2 (35.0-49.0) %
[2023-06-03 08:00] VITALS: BP 97/65; PULSE 66; RESP 16; TEMP 36.4; O2SAT 95
[2023-06-03 08:16] LABS: Hematocrit 40.5 % (35.0-49.0); Mean Corpuscular HGB Conc 32.1 g/dL (32.0-36.0); Mean Corpuscular Volume 87.1 fL (78.0-102.0); Platelet Count Result 464 K/mm3 (150-420); Red Blood Count 4.65 M/mm3 (4.20-5.40); Red Cell Distribution Width 12.8 % (11.6-14.4); White Blood Count 6.8 K/mm3 (4.8-10.8)
[2023-06-03 08:31] LABS: Band Neutrophils Percent 0 % (0-6); Basophils Percent Manual 0 % (0-1); Eosinophils Absolute Manual 0.34 K/mm3 (0.02-0.5); Eosinophils Percent Manual 5 % (1-6); Lymphocytes Absolute Manual 2.92 K/mm3 (1.1-4.5); Lymphocytes Percent Manual 43 % (18-44); Monocytes Absolute Manual 0.27 K/mm3 (0.1-0.90); Monocytes Percent Manual 4 % (3-9); Neutrophils Absolute Manual 3.19 K/mm3 (1.7-7.2); Neutrophils Percent Manual 47 % (46-73); Total Cells Counted 100
[2023-06-03 08:32] LABS: Metamyelocytes Percent 1 %
[2023-06-03 08:34] LABS: Alanine Aminotransferase 15 U/L (14-59); Albumin Level 2.3 g/dL (3.4-5.0); Alkaline Phosphatase 93 U/L (46-116); Anion Gap 5 mmol/L (8-16); Aspartate Amino Transferase 11 U/L (15-37); Blood Urea Nitrogen 9 mg/dL (7-18); Calcium 8.3 mg/dL (8.5-10.1); Carbon Dioxide 32 mmol/L (21-32); Chloride 104 mmol/L (98-108); Estimated CRCL calculation 82 ml/min; Estimated Glomerular Filt Rate > 60; Glucose 95 mg/dL (70-99); Magnesium 2.2 mg/dL (1.8-2.4); Osmolality Calculated 290 mOsm/kg (285-295); Phosphorus 4.5 mg/dL (2.6-4.7); Sodium 141 mmol/L (136-145); Total Protein 6.5 g/dL (6.4-8.2)
[2023-06-03 08:50] LABS: Bilirubin,Total 0.1 mg/dL (0.00-1.00)
[2023-06-03] MEDS: FLUTICASONE PROPIONATE 0.05% NA SPR 16 GM BTL (*BKC) 1 SPRAY NASAL (09:37)
[2023-06-03] MEDS: DULoxetine HCL 30 MG CAPSULE.DR PO (09:38)
[2023-06-03] MEDS: MONTELUKAST SODIUM 10 MG TABLET BY MOUTH (09:38)
[2023-06-03] MEDS: ONDANSETRON INJ 4 MG/2 ML VIAL IV PUSH (09:52)
[2023-06-03] MEDS: MORPHINE SULFATE (*CRX) 4 MG/ML INJ IV PUSH (09:53)
--- NOTE | 2023-06-03 12:26 | PM.IMHP ---
H&P: HPI History of Present Illness Date/Time: 06/03/23 12:26 <Flory Vazquez RN - Last Filed: 06/03/23 14:16> Chief Complaint: abdominal abscess cellulitis <Flory Vazquez RN - Last Filed: 06/03/23 14:16> Narrative: 52 year old female present with abdominal abscess and cellulitis. I&D was attempted in ED and incision was packed. Patient reports pain and pus like discharge from abdomen prior to coming to ED. Patient was seen 05/25/23 for similar complaints in which reduction of the mass was attempted with minimal resolves in resolution of symptoms. CT on 05/25/23 showed 14.8 x 9.0 x 7.1 cm subcutaneous fluid collection in along midline of anterior abdominal wall located over the site of prior ventral hernia repair. CT suggested seroma but differential of abscess remains possible. Patient was instructed to follow up with surgeon to discuss possible repair interventions. CT 06/02/23 showed 10.2 x 8.4 x 1.4 cm thick-walled subcutaneous fluid collection in the anterior abdominal wall. CT reports size did decrease post I&D. Past medical history includes ADD, asthma, rheumatid arthritis, and right flake pain. Patient is being treated with Zosyn q8hrs. <Flory Vazquez RN - Last Filed: 06/03/23 14:16> 52 year old female present with abdominal abscess and cellulitis. I&D was attempted in ED and incision was packed. Patient reports pain and pus like discharge from abdomen prior to coming to ED. Patient was seen 05/25/23 for similar complaints in which reduction of the mass was attempted with minimal resolves in resolution of symptoms. CT on 05/25/23 showed 14.8 x 9.0 x 7.1 cm subcutaneous fluid collection in along midline of anterior abdominal wall located over the site of prior ventral hernia repair. CT suggested seroma but differential of abscess remains possible. Patient was instructed to follow up with surgeon to discuss possible repair interventions. CT 06/02/23 showed 10.2 x 8.4 x 1.4 cm thick-walled subcutaneous fluid collection in the anterior abdominal wall. CT reports size did decrease post I&D. Past medical history includes ADD, asthma, rheumatid arthritis, and right flake pain. Patient is being treated with Zosyn q8hrs. Added by Preceptor Mikhail Pettit SPLITTER TENDER: Clarification from above: Patient reported spontaneous rupture of known seroma prior to presentation to [facility] on 06/02/23. Further I&D with packing completed by ED Physician Dr. David. It is not documented if communication with prior surgeon/on-call provider. Will speak to prior surgeon Dr. Mejia or on-call surgeon to discuss case to see if patient requires transfer for further surgical intervention. My chief concern is that prior reduction attempt may have opened channel from the wound area into the peritoneum and now that there is communication with the outside this risks peritonitis. There is no clear evidence that there is intrusion into the peritoneum however the wound is noted to be a small opening about 0.5 cm with underlying 7.5 cm deep internally dehisced prior surgical wound that tunnels side to side and tunnels 5 cm to the 12 o'clock position cranially and at least 3 cm to the 6 o'clock position caudally. White blood cell count did improve from 11-6.8 after drainage and Zosyn administration. If surgeon is ok with current treatment plan then patient will be fine to remain at [facility]. <Mikhail Pettit, FISH STRINGER ASSEMBLER - Last Filed: 06/03/23 14:23> Review of Systems Constitutional: Constitutional: Denies body ache(s), Denies chills, Denies difficulty sleeping, Denies fatigue, Reports lethargy, Denies night sweats and Reports weakness <Flory Vazquez RN - Last Filed: 06/03/23 14:16> Eyes: Eyes: Reports no additional eye complaints <Flory Vazquez RN - Last Filed: 06/03/23 14:16> ENT: Reports system reviewed and no additional complaints, except as documented <Flory Vazquez RN - Last Filed: 06/03/23 14:16> [facility]
[2023-06-03 15:55] VITALS: BP 98/62; PULSE 74; RESP 18; TEMP 36.6; O2SAT 97
[2023-06-04] VITALS: BP 116/63; PULSE 66; RESP 16; TEMP 36.8; O2SAT 96
[2023-06-04] MEDS: PIPERACILLN/TAZ 3.375GM/NS50ML 3.375 GM/50 ML BAG IVPB (04:33)
[2023-06-04] MEDS: BUDESONIDE/FORMOTEROL (*SP) 160-4.5 MCG 6 GM INH 2 PUFF INHALATION (06:26)
--- NOTE | 2023-06-04 07:39 | PM.DS ---
DS: Summary Time Spent with Patient Time attestation: Total time spent providing and/or coordinating discharge services: DS: Data Data Completed and Pending Labs on day of discharge: Labs from last 24 hours 06/03/23 08:11 WBC 6.8 RBC 4.65 Hgb 13.0 Hct 40.5 MCV 87.1 MCH 28.0 MCHC 32.1 RDW 12.8 Plt Count 464 H MPV 8.0 L Immature Gran % (Auto) Not Reportable Neut % (Auto) Not Reportable Lymph % (Auto) Not Reportable [place] % (Auto) Not Reportable Eos % (Auto) Not Reportable Baso % (Auto) Not Reportable Lymph # (Auto) Not Reportable [place] # (Auto) Not Reportable Eos # (Auto) Not Reportable Baso # (Auto) Not Reportable Abs Immat Gran (auto) Not Reportable Absolute Neuts (auto) Not Reportable Absolute Nucleated RBC Not Reportable Total Counted 100 Neutrophils % (Manual) 47 Band Neutrophils % 0 Lymphocytes % (Manual) 43 Monocytes % (Manual) 4 Eosinophils % (Manual) 5 Basophils % (Manual) 0 Metamyelocytes % 1 Nucleated RBC % Not Reportable Abs Neuts (Manual) 3.19 Abs Lymphs (Manual) 2.92 Abs Monocytes (Manual) 0.27 Absolute Eos (Manual) 0.34 Abs Basophils (Manual) 0.00 Platelet Estimate Slightly increased Schistocytes Not Reportable Sodium 141 Potassium 4.0 Chloride 104 Carbon Dioxide 32 Anion Gap 5 L BUN 9 Creatinine 0.85 Estim Creat Clear Calc 82 Estimated GFR > 60 Glucose 95 Calculated Osmolality 290 Calcium 8.3 L Phosphorus 4.5 Magnesium 2.2 Total Bilirubin 0.1 AST 11 L ALT 15 Alkaline Phosphatase 93 Total Protein 6.5 Albumin 2.3 L Preliminary micro results at discharge 06/02/23 12:28 Wound Culture - Preliminary Abdomen 06/02/23 12:40 Blood Culture - Preliminary Blood 06/02/23 12:40 Blood Culture - Preliminary Blood Discharge Plan Discharge Discharge Medications: No Action duloxetine [Cymbalta] 30 mg capsule,delayed release(DR/EC) 30 mg PO DAILY Qty: 30 2RF meloxicam 15 mg tablet 15 mg PO DAILY Qty: 30 2RF leflunomide 10 mg tablet 10 mg PO DAILY hydrocodone-acetaminophen 5-325 mg tablet 1 tablet PO Q8H PRN (Reason: pain) Qty: 30 0RF montelukast 10 mg tablet See Rx Instructions .ROUTE .COMPLEX Qty: 30 2RF Dose Instruction: TAKE 1 TABLET BY MOUTH DAILY Rx Instructions: TAKE 1 TABLET BY MOUTH DAILY dextromethorphan-guaifenesin 10-100 mg/5 mL liquid 10 ml PO Q4-6H PRN (Reason: cough) Qty: 236 1RF budesonide-formoterol [Symbicort] 160-4.5 mcg/actuation HFA aerosol inhaler See Rx Instructions .ROUTE .COMPLEX Qty: 10.2 0RF Dose Instruction: INHALE 2 PUFFS BY MOUTH 2 TIMES A DAY Rx Instructions: INHALE 2 PUFFS BY MOUTH 2 TIMES A DAY fluticasone propionate 50 mcg/actuation spray,suspension See Rx Instructions .ROUTE .COMPLEX Qty: 16 0RF Dose Instruction: 1 SPRAY INTRANASALLY DAILY ADMINISTER INTO EACH NOSTRIL Rx Instructions: 1 SPRAY INTRANASALLY DAILY ADMINISTER INTO EACH NOSTRIL Date of admission: 06/02/23 14:47 Primary Care Provider: Donna Cason Admitting Provider: Joby Aguero Attending physician on admission: Joby Aguero Condition: Stable
--- NOTE | 2023-06-04 07:39 | PM.TDS ---
Transfer Discharge Sum: Prov Provider Date of admission: 06/02/23 14:47 Primary care physician: Donna Cason NP Admitting clinician: Scott Aguero MD Attending physician on admission: Joby Aguero Attending physician on discharge: Joby Aguero Discharging clinician: Mikhail Pettit Anticipated date of transfer: 06/04/23 Receiving physician/facility: [facility] for Dr. Damian Mejia (Surgery) accepting DS: Admitting Diagnosis Discharge Date 06/04/2023 Admitting Diagnosis Cellulitis, wound dehiscence, rheumatoid arthritis, smoker DS: Discharge Diagnosis Discharge Diagnosis (1) Cellulitis: Qualifiers: Site of cellulitis: trunk Site of cellulitis of trunk: abdominal wall Qualified Code(s): L03.311 - Cellulitis of abdominal wall Code(s): L03.90 - Cellulitis, unspecified Status: Acute (2) Wound dehiscence, surgical: Code(s): T81.31XA - Disruption of external operation (surgical) wound, not elsewhere classified, initial encounter Status: Acute (3) Rheumatoid arthritis: Qualifiers: Rheumatoid arthritis location: multiple sites Rheumatoid factor presence: unspecified presence Qualified Code(s): M06.9 - Rheumatoid arthritis, unspecified Code(s): M06.9 - Rheumatoid arthritis, unspecified Status: Acute (4) Smoker: Code(s): F17.200 - Nicotine dependence, unspecified, uncomplicated Status: Chronic Transfer Discharge Sum: Med Medications Active and Home Medications: Home Medications duloxetine 30 mg capsule,delayed release (Cymbalta) 30 mg PO DAILY #30 caps 10/01/22 [Rx Confirmed 06/02/23] leflunomide 10 mg tablet 10 mg PO DAILY 02/12/23 [History Confirmed 06/02/23] meloxicam 15 mg tablet 15 mg PO DAILY #30 tabs 02/16/23 [Rx Confirmed 06/02/23] hydrocodone 5 mg-acetaminophen 325 mg tablet 1 tablet PO Q8H PRN pain #30 tabs 03/11/23 [Rx Confirmed 06/02/23] montelukast 10 mg tablet See Rx Instructions .Route .COMPLEX #30 tabs 03/12/23 [Rx Confirmed 06/02/23] dextromethorphan-guaifenesin 10 mg-100 mg/5 mL oral liquid 10 ml PO Q4-6H PRN cough #236 mL 04/01/23 [Rx Confirmed 06/02/23] budesonide-formoterol HFA 160 mcg-4.5 mcg/actuation aerosol inhaler (Symbicort) See Rx Instructions .Route .COMPLEX #10.2 ea 04/13/23 [Rx Confirmed 06/02/23] fluticasone propionate 50 mcg/actuation nasal spray,suspension See Rx Instructions .Route .COMPLEX #16 mL 05/29/23 [Rx Confirmed 06/02/23] Active Medications Acetaminophen (Acetaminophen 325 Mg Tablet) 650 mg PO Q4H PRN PRN Reason: Mild Pain (1-3) or Fever Hydrocodone Bitart/Acetaminophen (Hydrocodone/Acetaminophen (*Crx) 5-325 Mg Tablet) 1 tab PO Q8H PRN PRN Reason: pain 4-6 Last Admin: 06/03/23 01:04 Dose: 1 tab Budesonide/Formoterol Fumarate (Budesonide/Formoterol (*Sp) 160-4.5 Mcg 6 Gm Inh) 2 puff INHALATION Q12HRT [facility] Last Admin: 06/04/23 06:26 Dose: 2 puff Duloxetine HCl (Duloxetine Hcl 30 Mg Capsule.Dr) 30 mg PO DAILY [facility] Last Admin: 06/03/23 09:38 Dose: 30 mg Enoxaparin Sodium (Enoxaparin 40 Mg/0.4 Ml Syringe) 40 mg SUB-Q DAILY [facility] Fluticasone Propionate (Fluticasone Propionate 0.05% Na Spr 16 Gm Btl (*Bkc)) 1 spray NASAL DAILY [facility] Last Admin: 06/03/23 09:37 Dose: 1 spray Guaifenesin/Dextromethorphan (Guaifenesin/Dextromethorphan 5 Ml Udc) 10 ml PO Q4-6H PRN PRN Reason: cough Piperacillin/Tazobactam/Dextrose (Zosyn 3.375 Gm/Ns 50 Ml) 3.375 gm in 50 mls @ 100 mls/hr IVPB Q8H [facility] Last Infusion: 06/04/23 05:03 Dose: Infused Meloxicam (Meloxicam 7.5 Mg Tablet) 15 mg PO DAILY [facility] Montelukast Sodium (Montelukast Sodium 10 Mg Tablet) 10 mg BY MOUTH DAILY [facility] Last Admin: 06/03/23 09:38 Dose: 10 mg Ondansetron HCl (Ondansetron Inj 4 Mg/2 Ml Vial) 4 mg IV PUSH Q6H PRN PRN Reason: Nausea And Vomiting Transfer Discharge Sum: Hosp Hospital Course Hospital course: Iveth Grossman is a 52 year old female admitted to the hospital for IV antibiotics stat
[2023-06-04 07:58] VITALS: BP 104/62; PULSE 65; RESP 14; TEMP 36.2; O2SAT 95
--- NOTE | 2023-06-04 08:24 | PC.NURSE ---
Report called to [facility] Med/Surg floor. Pt is transferring to room 324 bed 1 for surgical consult. Pt will be transferred by ambulance. Pt is aware and agreeable to transfer.
[2023-06-04] MEDS: DULoxetine HCL 30 MG CAPSULE.DR PO (08:56)
[2023-06-04] MEDS: MONTELUKAST SODIUM 10 MG TABLET BY MOUTH (08:56)
--- NOTE | 2023-06-04 10:05 | PC.NURSE ---
0745 Called [facility] dispatch to transfer pt to [place]. Ambulance called back at [phone] and reported they would not have a truck to transfer until 0900. approved by provider to wait on the 0900 ambulance. 0955 Called [facility] dispatch again they called ambulance directly and they do not have a crew yet. Called [facility] ambulance for transfer. Danis Pettit NP aware.
--- NOTE | 2023-06-04 10:55 | PC.NURSE ---
Pt transferred to [facility] by [facility] ambulance service. Pt A/O x3, VSS, denies pain, dressing CDI. left the floor at 1030.
== END 2023-06-04 10:30 | disposition short-term general hospital (02) ==
LOC: CHSED 13:15 → CHS2ND 15:00
PROVIDERS: Nurse Practitioner; Admitting Provider Internal Medicine; Emergency Provider Emergency Medicine; PCP Nurse Practitioner Family; Visit Provider Internal Medicine
DX: L03.311 Cellulitis of abdominal wall (principal); T81.31XA Disruption of external operation (surgical) wound, not elsewhere classified, initial encounter; Y83.8 Other surgical procedures as the cause of abnormal reaction of the patient, or of later complication, without mention of misadventure at the time of the procedure; M06.9 Rheumatoid arthritis, unspecified; F98.8 Other specified behavioral and emotional disorders with onset usually occurring in childhood and adolescence; J45.909 Unspecified asthma, uncomplicated; F10.90 Alcohol use, unspecified, uncomplicated; F17.210 Nicotine dependence, cigarettes, uncomplicated; Z79.1 Long term (current) use of non-steroidal anti-inflammatories (NSAID); Z79.51 Long term (current) use of inhaled steroids; Z79.891 Long term (current) use of opiate analgesic; Z79.899 Other long term (current) drug therapy
CPT/HCPCS: 10061; 36415; 74177; 80053; 83605; 83735; 84100; 85025; 87040; 87070; 87205; 96365; 96366; 96375; 99285; A9270; G0378; G0379; J2270; J2405; J2543; Q9967

== ENCOUNTER 2023-06-04 13:42 | Inpatient (IN) | payer OTHER, SELFPAY ==
--- NOTE | 2023-06-04 11:10 | ADMGEN ---
This patient, Iveth Grossman, was admitted to [facility] Surg Room 324-02. Patient/family oriented to hospital policies and general routines including ID bracelet, bed and alarms, visiting hours, pain management, procedures, bathroom and other care routines, personal items, smoking policy, room service/diet, and visiting hours. Information on how to activate the Rapid Response Team has been discussed. Patient/Family are encouraged to report perceived risks to care and to ask questions if they do not understand what they are told or what they should do.
[2023-06-04 11:29] VITALS: PULSE 52; RESP 18; O2SAT 96
[2023-06-04 11:48] VITALS: BMI 33.8
[2023-06-04 11:59] VITALS: BP 107/60; PULSE 58; RESP 18; TEMP 36.6; O2SAT 96
--- NOTE | 2023-06-04 13:01 | PM.IMHP ---
H&P: HPI History of Present Illness Date/Time: 06/04/23 13:01 Chief Complaint: Abdominal wound Narrative: This is a 52-year old woman with past medical history of rheumatoid arthritis and asthma, who had an incarcerated recurrent incisional hernia with colonic obstruction in September of 2022 and subsequently had a recurrent ventral incisional hernia repair with removal of abdominal wall mesh, extensive adhesiolysis, and small-bowel resection with anastomosis on September 05, [address] Mejia. She was initially followed as an outpatient for a postoperative seroma, but did not schedule her next follow-up and has not been seen since November of 2022. She then presented to [facility] 10 days ago with increased abdominal distension in the area of her previous ventral hernia repair. She was also complaining of constipation. The ER provider initially thought this was a recurrent hernia and attempted reduction. They then ordered a CT scan of the abdomen and pelvis that showed an interval decrease in size of a 14 x 9 x 7 cm loculated subcutaneous fluid collection along the midline anterior abdominal wall overlying the site of a prior ventral hernia repair, most likely representing a seroma. She was discharged and instructed to follow up with surgery. She then returned back to [facility] 2 days ago with complaints of redness and drainage at her scar over the seroma. The ED provider performed incision and drainage, and packed the wound. Labs showed white blood cell count was 11,100. CT scan abdomen and pelvis repeated and showed 10.2 x 8.4 x 1.4 cm thick walled subcutaneous fluid collection in anterior abdominal wall with interval decrease in size status post incision and drainage. She was admitted to [facility] and started on IV Zosyn. The hospitalist contacted our service to discuss the case with the surgeon. She has now been directly transferred to our facility for surgical evaluation. She is now seen on the medical floor with Dr. Mejia and the wound care nurses. Patient admits to not taking her home medications for at least a month as she had not picked up her medications. She is not currently driving and had to have a friend drop her off at the ER. Review of Systems Review of Systems: All systems reviewed & are unremarkable except as noted in HPI and below Constitutional: Constitutional: Reports no additional constitutional complaints, Denies chills, Denies fever(s) and Denies poor appetite Cardiovascular: Cardiovascular: Reports no additional cardiovascular complaints Respiratory: Respiratory: Reports no additional respiratory complaints Gastrointestinal: Gastrointestinal: Reports as per HPI and Reports no additional gastrointestinal complaints Genitourinary: Genitourinary: Reports no additional female genitourinary complaints Musculoskeletal: Musculoskeletal: Reports no additional musculoskeletal complaints [facility] Past Medical History Medical History (Updated 06/04/23 @ 14:15 by HALLEY Moore) ADD (attention deficit disorder) Asthma Allergic asthma, allergic to cats which she has in her home Rheumatoid arthritis Right flank pain Surgical History Surgical History (Updated 06/04/23 @ 14:15 by HALLEY Moore) History of carpal tunnel surgery History of hernia surgery History of incisional hernia repair Repair 22 cm recurrent ventral incisional hernia, removal 22 x 15 cm abdominal wall mesh, extensive adhesiolysis, small-bowel resection with anastomosis S/P RUSTY-BSO Unilateral oophorectomy and BTL first then RUSTY and other ovary resection S/P trigger finger release Family History Family History Father Diabetes mellitus Mother Colon cancer Breast cancer Social History Social History Social History: Lives alone. . Smoke 1ppd x 42 years. has cats. marijuana but denies other drug use or hx of IVDU. A
[2023-06-04] MEDS: LIDOCAINE HCL 1% LOCAL INJ 10 ML VIAL 5 ML INFILTRATE ×2 (13:42→13:43)
[2023-06-04 14:00] VITALS: BP 107/73; PULSE 56; RESP 22; TEMP 36.9; O2SAT 98
--- NOTE | 2023-06-04 14:05 | W.PM.PROC2 ---
Procedure Note - Detailed Date of Procedure 06/04/23 Pre-op Diagnosis Draining wound seroma Post-op Diagnosis Same Procedure Performed Complex incision and drainage of large abdominal wound seroma Surgeon Damian Mejia MD Director Of Physical Education Nancy Sanz [facility] Anesthesia Local (1% lidocaine with epinephrine) Indications Patient had a complex incisional hernia repair for incarcerated incisional hernia and bowel obstruction last September. Her previous incisional hernia repair had been a large mesh overlay which had been lifted off the abdominal wall by the herniated bowel another contents. This mesh was removed at surgery and the wounds healed but a large seroma developed postoperatively. I was seeing the patient to manage this as an outpatient but she stopped coming in. She recently was admitted to [facility] with a draining seroma from the lower aspect of the abdominal scar. She transferred to [facility] this morning. Evaluation shows only a small dime-sized opening but rather large dimensions of the seroma in the deeper tissues overlying the abdominal wall fascia. Plan is to treat this wound with wound VAC negative pressure therapy. Patient is having the overlying tissue opened so that the extent of the seroma cannot only be assessed but also wound VAC placed effectively. Findings Serosanguineous fluid was in the seroma cavity. No purulent fluid was found. Seroma dimensions after incision and drainage were length of 12 cm, width of 6 cm, depth of 6.5 cm, with tracking in the lower aspect of the wound 5.7 cm to the right. No suture material was noted on the abdominal wall. In sides of the seroma the cavity seemed very smooth. There was 2 cm by 5 mm area on the abdominal wall that had some debris. I could not feel any suture nor could I easily removed this. There may possibly be some suture material at this area. Description of Procedure Patient was supine in her hospital bed. The abdomen was prepped with ChloraPrep. Q-tip was used to determine the initial dimensions of the seroma. I infiltrated local anesthetic into the skin and subcutaneous both caudally and cephalad to anesthetize the areas where we would be opening the wound. I then used the 11 blade scalpel and opened the wound caudally about 3 cm and then opened it cephalad another 4 cm. I placed fingers in the wound and then noticed the tracking to the right which was 5.7 cm as noted above. There was additional deep tracking cephalad, continuing along the course of the scar, which would need to be opened further. I prepped this area and then anesthetized it well with local anesthetic. I opened this wound another 5 cm cephalad including skin and subcutaneous. This was the final extent of the seroma cavity. I did note the inflammatory exudate on the abdominal wall as mentioned above. I could not feel any suture material and could not really removed this tissue easily with the 11 blade scalpel. It was not tender and there was no purulence. We then packed the wound with fluffs and covered it with fluffs. Medipore tape was used. The wound care tree specialist were present at the incision and drainage. They will come back and place a wound VAC once available from the [facility] department. Estimated Blood Loss -5 Drains No Packing Yes (Fluffs) Pathology None sent Complications No immediate complications Condition Stable Disposition No change ([facility] floor) [facility] Billing Surgery - Charge Forward: Surgery Billing (Complex incision and drainage of large abdominal wound seroma)
[2023-06-04] MEDS: HYDROcodone/acetaminophen (*CRX) 7.5-325 MG TABLET 1 TAB PO ×2 (14:10→22:13)
[2023-06-04 14:50] LABS: Basophils Absolute Auto 0.1 K/mm3 (0.0-0.1); Basophils Percent Auto 0.8 % (0.2-1.2); Eosinophils Absolute Auto 0.2 K/mm3 (0-0.3); Eosinophils Percent Auto 3.1 % (0-4.4); Hematocrit 41.7 % (37.0-47.0); Hemoglobin 13.2 g/dL (12.0-15.0); Immature Granulocyte Absolute 0.16 K/mm3 (0.00-0.031); Immature Granulocyte Percent A 2.2 % (0-0.5); Lymphocytes Percent Auto 31.3 % (18.3-44.2); Mean Corpuscular HGB Conc 31.7 g/dl (32-36); Mean Corpuscular Volume 88.3 fl (80-100); Mean Platelet Volume 8.2 fl (7.4-10.4); Monocytes Absolute Auto 0.4 K/mm3 (0.1-0.6); Monocytes Percent Auto 5.4 % (2.6-8.5); Neutrophils Absolute Auto 4.2 K/mm3 (1.3-6.7); Neutrophils Percent Auto 57.2 % (45.5-73.1); Platelet Count Result 479 k/mm3 (150-375); Red Blood Count 4.72 M/mm3 (4.2-5.4); Red Cell Distribution Width 12.5 % (11.5-14.5); White Blood Count 7.4 K/mm3 (4.5-10.0)
[2023-06-04 14:59] LABS: Anion Gap 0 mmol/L (8-16); Blood Urea Nitrogen 9 mg/dL (7-17); Carbon Dioxide 34 mmol/L (22-30); Chloride 105 mmol/L (98-107); Estimated CRCL calculation 98 ml/min; Estimated Glomerular Filt Rate > 60; Glucose 105 mg/dL (65-110); Potassium 4.4 mmol/L (3.4-5.0); Sodium 139 mmol/L (137-145)
[2023-06-04 21:10] VITALS: BP 101/53; PULSE 63; RESP 16; TEMP 36.6; O2SAT 98
[2023-06-05 05:50] VITALS: BP 104/66; PULSE 69; RESP 14; TEMP 36.2; O2SAT 97
[2023-06-05 06:33] LABS: Basophils Absolute Auto 0.1 K/mm3 (0.0-0.1); Basophils Percent Auto 1.1 % (0.2-1.2); Eosinophils Absolute Auto 0.4 K/mm3 (0-0.3); Eosinophils Percent Auto 4.7 % (0-4.4); Hematocrit 41.6 % (37.0-47.0); Hemoglobin 12.9 g/dL (12.0-15.0); Immature Granulocyte Absolute 0.16 K/mm3 (0.00-0.031); Immature Granulocyte Percent A 2.1 % (0-0.5); Lymphocytes Absolute Auto 3.23 K/mm3 (0.9-3.2); Lymphocytes Percent Auto 43.4 % (18.3-44.2); Mean Corpuscular Volume 90.4 fl (80-100); Mean Platelet Volume 8.2 fl (7.4-10.4); Monocytes Absolute Auto 0.4 K/mm3 (0.1-0.6); Monocytes Percent Auto 5.1 % (2.6-8.5); Neutrophils Absolute Auto 3.3 K/mm3 (1.3-6.7); Neutrophils Percent Auto 43.6 % (45.5-73.1); Platelet Count Result 466 k/mm3 (150-375); Red Cell Distribution Width 12.8 % (11.5-14.5); White Blood Count 7.5 K/mm3 (4.5-10.0)
[2023-06-05 06:44] LABS: Anion Gap 3 mmol/L (8-16); Blood Urea Nitrogen 10 mg/dL (7-17); Calcium 8.9 mg/dL (8.4-10.2); Carbon Dioxide 29 mmol/L (22-30); Chloride 106 mmol/L (98-107); Estimated CRCL calculation 98 ml/min; Estimated Glomerular Filt Rate > 60; Glucose 106 mg/dL (65-110); Potassium 4.1 mmol/L (3.4-5.0); Sodium 138 mmol/L (137-145)
[2023-06-05 08:00] VITALS: PULSE 69; RESP 14; O2SAT 97
[2023-06-05] MEDS: HYDROcodone/acetaminophen (*CRX) 7.5-325 MG TABLET 1 TAB PO (09:10)
[2023-06-05 14:00] VITALS: BP 111/57; PULSE 67; RESP 14; TEMP 36.1; O2SAT 97
--- NOTE | 2023-06-05 16:00 | WPDPN ---
Progress Note: A&P Assessment and Plan (1) Open abdominal wall wound: Qualifiers: Encounter type: subsequent encounter Qualified Code(s): S31.109D - Unspecified open wound of abdominal wall, unspecified quadrant without penetration into peritoneal cavity, subsequent encounter Code(s): S31.109A - Unspecified open wound of abdominal wall, unspecified quadrant without penetration into peritoneal cavity, initial encounter Status: Acute Assessment and Plan: Still waiting on approval for the wound VAC for home use as well as arranging transportation until home health can be set up for home wound VAC visits. Plan for patient to follow up with me 2 weeks after discharge in the wound clinic to continue following for open wound with history seroma. (2) History of incisional hernia repair: Code(s): Z98.890 - Other specified postprocedural states; Z87.19 - Personal history of other diseases of the digestive system Status: Resolved (3) Smoker: Code(s): F17.200 - Nicotine dependence, unspecified, uncomplicated Status: Chronic Assessment and Plan: Advised to quit on multiple occasions Subjective Date/time seen: 06/05/23 16:00 Interval history: No new complaints other than wants to go home. Wound vac placed yesterday. No problems Exam Const: General: comfortable, no acute distress, alert and awake Orientation/consciousness: No confusion GI: Inspection: non-distended and incision (vac in place, working well) GI Palp: Yes Soft to palpation, Yes Tenderness to palpation present (GI) (Very mild tenderness), No Guarding due to palpation present (GI), No Hernia present, No Palpable mass present and No Rebound tenderness present Objective Data Vital Signs Vital Signs: Vital Signs - 24 hr 06/04/23 20:10 06/04/23 21:10 06/05/23 05:50 Temperature 36.6 C 36.2 C L Pulse Rate 63 69 Respiratory Rate 16 14 Blood Pressure 101/53 L 104/66 Pulse Oximetry 98 97 Oxygen Delivery Room Air 06/05/23 08:00 06/05/23 14:00 Temperature 36.1 C L Pulse Rate 69 67 Respiratory Rate 14 14 Blood Pressure 111/57 L Pulse Oximetry 97 97 Oxygen Delivery Room Air Intake/Output Intake/Output: Intake & Output 06/02/23 06/03/23 06/04/23 06/05/23 23:59 23:59 23:59 23:59 Intake Total 780 848 Balance 780 848 Meds/Results Medications: Active Medications Generic Name Dose Route Start Last Admin Trade Name Freq PRN Reason Stop Dose Admin Acetaminophen 650 mg 06/04/23 13:41 Acetaminophen 325 Mg Tablet PO Q4H PRN Mild Pain (1-3) or Fever Hydrocodone Bitart/Acetaminophen 1 tab 06/04/23 13:41 Hydrocodone/Acetaminophen (*Crx) 5-325 Mg Tablet PO Q4H PRN Moderate Pain (4-6) Hydrocodone Bitart/Acetaminophen 1 tab 06/04/23 13:41 06/05/23 09:10 Hydrocodone/Acetaminophen (*Crx) 7.5-325 Mg Tablet PO 1 tab Q6H PRN Administration Pain Rated 7-10 Morphine Sulfate 2 mg 06/04/23 13:41 Morphine Sulfate (*Crx) 2 Mg/Ml Inj IV PUSH Q2H PRN Pain Rated 7-10 Labs Labs: Laboratory Results - last 24 hr 06/05/23 06:21 WBC 7.5 RBC 4.60 Hgb 12.9 Hct 41.6 MCV 90.4 MCH 28.0 MCHC 31.0 L RDW 12.8 Plt Count 466 H MPV 8.2 Immature Gran % (Auto) 2.1 H Neut % (Auto) 43.6 L Lymph % (Auto) 43.4 Walsh % (Auto) 5.1 Eos % (Auto) 4.7 H Baso % (Auto) 1.1 Lymph # (Auto) 3.23 H Walsh # (Auto) 0.4 Eos # (Auto) 0.4 H Baso # (Auto) 0.1 Abs Immat Gran (auto) 0.16 H Absolute Neuts (auto) 3.3 Absolute Nucleated RBC 0.0 Nucleated RBC % 0.0 Sodium 138 Potassium 4.1 Chloride 106 Carbon Dioxide 29 Anion Gap 3 L BUN 10 Creatinine 0.70 Estim Creat Clear Calc 98 Estimated GFR > 60 Glucose 106 Calcium 8.9
--- NOTE | 2023-06-05 17:04 | PM.DS ---
DS: Admitting Diagnosis Discharge Date 06/05/2023 Admitting Diagnosis Draining abdominal seroma DS: Discharge Diagnosis Discharge Diagnosis (1) Abdominal wall seroma: Qualifiers: Encounter type: subsequent encounter Qualified Code(s): S30.1XXD - Contusion of abdominal wall, subsequent encounter Code(s): S30.1XXA - Contusion of abdominal wall, initial encounter Status: Chronic (2) Open abdominal wall wound: Qualifiers: Encounter type: subsequent encounter Qualified Code(s): S31.109D - Unspecified open wound of abdominal wall, unspecified quadrant without penetration into peritoneal cavity, subsequent encounter Code(s): S31.109A - Unspecified open wound of abdominal wall, unspecified quadrant without penetration into peritoneal cavity, initial encounter Status: Chronic Assessment and Plan: Seroma of abdominal wall draining serosanguinous fluid per small wound opening. On 06/04/2023, wound was opened the length of the seroma so wound care, specifically wound vac, could be placed. This was done yesterday and patient able to be discharged today with f/u in wound clinic 06/08/2023. DS: Summary Hospital Course Hospital Course: Patient transferred here from [facility] in [place] on , 06/04/2023. Wound was opened the length of the seroma along the midline abdominal wound scar. Wound looked good with healthy, beefy red tissue. Wound vac was placed yesterday. Patient did not get vac approved until late today but now that it is approved, patient discharged with home vac. Plan is to f/u in Wound Clinic on Thursday06/08/2023 where wound nurses and Dr. Mejia can remove vac and check wound, replace vac. Eventually, HH will come to her home to change vac twice a week. She will f/u in the wound clinic every 2-3 weeks for wound and vac management. Time spent discussing smoking cessation with patient: 3 to 10 minutes Status at Discharge Functional status at discharge: independent ambulation Overall status at discharge: patient is progressing back to baseline Time Spent with Patient Time attestation: Total time spent providing and/or coordinating discharge services: Time spent: Less than 30 minutes DS: Data Data Completed and Pending Labs on day of discharge: Labs from last 24 hours 06/05/23 06:21 WBC 7.5 RBC 4.60 Hgb 12.9 Hct 41.6 MCV 90.4 MCH 28.0 MCHC 31.0 L RDW 12.8 Plt Count 466 H MPV 8.2 Immature Gran % (Auto) 2.1 H Neut % (Auto) 43.6 L Lymph % (Auto) 43.4 Cuming % (Auto) 5.1 Eos % (Auto) 4.7 H Baso % (Auto) 1.1 Lymph # (Auto) 3.23 H Cuming # (Auto) 0.4 Eos # (Auto) 0.4 H Baso # (Auto) 0.1 Abs Immat Gran (auto) 0.16 H Absolute Neuts (auto) 3.3 Absolute Nucleated RBC 0.0 Nucleated RBC % 0.0 Sodium 138 Potassium 4.1 Chloride 106 Carbon Dioxide 29 Anion Gap 3 L BUN 10 Creatinine 0.70 Estim Creat Clear Calc 98 Estimated GFR > 60 Glucose 106 Calcium 8.9 Discharge Plan Discharge Attending physician on discharge: Damian Mejia Discharging Clinician: Damian Mejia Anticipated Discharge Date/Time: 06/05/23 17:14 Patient Disposition: Home, Self-Care Activity: as tolerated Diet: regular Wound Care Instructions: keep dressing dry Discharge Instructions: Follow up for wound. Appointment with Dr Damian Mejia on June 07 at the wound clinic on [address] [place] [address]. Call wound clinic around 8:00 or 8:30 to arrange a follow up visit. Please arrive 30 minutes early to register as an outpatient. After registration is complete the wound center is located on the 2nd floor of the hospital. For any questions please call the wound center at [phone]. Patient Instructions: Antibiotic Form Stand Alone Forms: General Discharge Information Follow-up/Referrals: Damian Mejia MD [Physician] - 06/08/23 (Follow up with Dr. Mejia in wound clinic on Thursday06/08/23. Call for appointment early on Thursday06/08/23
== END 2023-06-05 18:11 | disposition home or self-care (01) | DRG 793 ==
PROVIDERS: Nurse Practitioner Family; Admitting Provider Surgery; PCP Nurse Practitioner Family; Visit Provider Surgery
DX: L76.34 Postprocedural seroma of skin and subcutaneous tissue following other procedure (principal); Y83.8 Other surgical procedures as the cause of abnormal reaction of the patient, or of later complication, without mention of misadventure at the time of the procedure; F98.8 Other specified behavioral and emotional disorders with onset usually occurring in childhood and adolescence; M06.9 Rheumatoid arthritis, unspecified; F17.210 Nicotine dependence, cigarettes, uncomplicated; J45.909 Unspecified asthma, uncomplicated; Z87.19 Personal history of other diseases of the digestive system
CPT/HCPCS: 36415; 80048; 85025; A9270

== ENCOUNTER 2023-06-16 17:22 | Emergency (ER) | payer OTHER, SELFPAY ==
[2023-06-16 17:23] VITALS: BP 140/84; PULSE 97; RESP 18; TEMP 37; O2SAT 100
--- NOTE | 2023-06-16 18:19 | ED.WOUNDLAC ---
HPI - Wound/Laceration General Chief Complaint: Wound/Laceration Stated Complaint: wound Time Seen by Provider: 06/16/23 17:26 History of Present Illness HPI narrative: patient is a 52-year-old female presenting with a wound VAC complication. States that she just had her wound VAC changed yesterday at our wound center. Unfortunately, the tubing got caught on a chair and ripped open the dressing. States that she tried to tape it back up but it continues to leak. States that she just needs her wound VAC changed. No further concerns or complaints. Related Data Home Medications Medication Instructions Recorded Confirmed leflunomide 10 mg tablet 10 mg PO DAILY 02/12/23 06/16/23 losartan 25 mg tablet 25 mg PO DAILY 06/04/23 06/16/23 Allergies Allergy/AdvReac Type Severity Reaction Status Date / Time shellfish derived Allergy Unknown Verified 06/16/23 17:25 Review of Systems Review of Systems: All systems reviewed & are unremarkable except as noted in HPI and below PMFSH Past Medical History Medical History ADD (attention deficit disorder) Asthma Allergic asthma, allergic to cats which she has in her home Rheumatoid arthritis Right flank pain Surgical History Surgical History History of carpal tunnel surgery History of hernia surgery History of incisional hernia repair Repair 22 cm recurrent ventral incisional hernia, removal 22 x 15 cm abdominal wall mesh, extensive adhesiolysis, small-bowel resection with anastomosis S/P RUSTY-BSO Unilateral oophorectomy and BTL first then RUSTY and other ovary resection S/P trigger finger release Family History Family History Father Diabetes mellitus Mother Colon cancer Breast cancer Social History Social History Social History: Lives alone. . Smoke 1ppd x 42 years. has cats. marijuana but denies other drug use or hx of IVDU. Alcohol use anywhere from 0-20 drinks/week. Full code. Does not have a surrogate decision maker. Smoking packs per day: 0.5 Smoking cigarettes per day: 10.0 Years smoked: 42 Smoking pack-years: 21.00 Smoking status: Current every day smoker Second hand tobacco smoke exposure: Yes Alcohol intake: current Drinks per week: 3 Substance use: current Substance use type: marijuana Last use: 06/02/23 Do You Feel Safe in your Home?: Yes Lack of Transportation: No Lack of Food: Never True Current Housing: I Have Housing Concerned About Future Housing: No Difficulty Paying Gas/Electric Bills: No Difficulty Paying for Meds: No Currently Unemployed: No Education: Bachelor's Degree Difficulty w/ Childcare or Family Care: No Spiritual care concerns: No Exam Narrative: GENERAL: Well-appearing, In no acute distress, pleasant cooperative HEAD: Normocephalic, atraumatic. EYES: PERRLA and EOMI. ENT: grossly unremarkable NECK: Supple. CHEST: No respiratory distress. HEART: Regular rate and rhythm ABDOMEN: Soft, wound mid abdomen with wound vac in place, no abdominal tenderness EXTREMITIES: Normal range of motion. SKIN: Warm, dry, no rash. NEURO: Alert and oriented x3. PSYCH: Normal mood and affect. Course Vital Signs Vital signs: Vital Signs Temperature 98.6 F 06/16/23 17:23 Pulse Rate 97 06/16/23 17:23 Respiratory Rate 18 06/16/23 17:23 Blood Pressure 140/84 06/16/23 17:23 Pulse Oximetry 100 06/16/23 17:23 Oxygen Delivery Room Air 06/16/23 17:23 Temperature 98.6 F 06/16/23 17:23 Pulse Rate 97 06/16/23 17:23 Respiratory Rate 18 06/16/23 17:23 Blood Pressure 140/84 06/16/23 17:23 Pulse Oximetry 100 06/16/23 17:23 Oxygen Delivery Room Air 06/16/23 17:23 MDM - Wound/Laceration MDM Narrative Medical decisio
--- NOTE | 2023-06-16 18:54 | PC.NURSE ---
Patient presented to the ED w/ a wound vac in place that had a leak and was requesting the wound vac to be unpacked and repacked with her current home supplies. furniture builder contacted warehouse operations manager and was told dressing needed to be wet to dry changed unless told otherwise by rubber process hand, fuel cell assembler did not answer VM was left and did not return phone call. patient stated she would leave because she had an RN friend who could change this for her because she could not come up here 15x . Patient also stated she would not put gauze in her abd and was not leaving here without the foam . patient requested to leave AMA. made aware.
== END 2023-06-16 19:11 | disposition left against medical advice (07) ==
LOC: ANHED 18:08
PROVIDERS: Emergency Provider Emergency Medicine; PCP Nurse Practitioner Family
DX: L98.8 Other specified disorders of the skin and subcutaneous tissue (principal); J45.909 Unspecified asthma, uncomplicated; M06.9 Rheumatoid arthritis, unspecified; F17.210 Nicotine dependence, cigarettes, uncomplicated; Z90.710 Acquired absence of both cervix and uterus; Z90.79 Acquired absence of other genital organ(s); Z90.722 Acquired absence of ovaries, bilateral
CPT/HCPCS: 99281

== ENCOUNTER 2023-09-03 07:16 | Outpatient (RCR) | payer OTHER, SELFPAY ==
[2023-06-11 09:30] VITALS: BMI 34.3
--- NOTE | 2023-06-23 10:25 | WPDWOUNDNOTE ---
Wound Care Note Date/Time: 06/23/23 10:25 History: History incarcerated incisional hernia with small-bowel obstruction requiring laparotomy, excision of previous mesh, small-bowel resection. Wound history: Developed large seroma recently which was incised and drained 1st at [facility] in [place]. She transferred to [place] and on 06/04/2019 for had a complex incision and drainage at the bedside per Dr. Mejia. She has been under wound VAC therapy since then. Wound approximation: No Wound width: 3.5 cm-unchanged Wound length: 7.5 cm-down from 9 cm Wound depth: 4 cm-unchanged Surrounding tissue appearance: Maceration, yeast satellites Tunnelin% decreased. Especially decreased in right lower aspect Percentage granulation tissue: One hundred Treatment/Procedures: Antifungal powder to surrounding skin, continue wound VAC therapy Dressings: Wound VAC continued therapy Assessment and Plan Assessment and plan (1) Open abdominal wall wound: Qualifiers: Encounter type: subsequent encounter Qualified Code(s): S31.109D - Unspecified open wound of abdominal wall, unspecified quadrant without penetration into peritoneal cavity, subsequent encounter Code(s): S31.109A - Unspecified open wound of abdominal wall, unspecified quadrant without penetration into peritoneal cavity, initial encounter Status: Chronic Assessment and Plan: Recheck again in wound clinic in 2-3 weeks.
--- NOTE | 2023-08-20 08:27 | PCWOUND ---
CWON NOTE Patient called to cancel appointment as she does not have a ride today, as her friend moved to [place]. States she will have one for next week. Patient scheduled for 08/27/23.
== END 2023-09-09 23:59 | disposition home or self-care (01) ==
LOC: ANHWOC 07:16
PROVIDERS: PCP Nurse Practitioner Family; Visit Provider Surgery
DX: Z48.00 Encounter for change or removal of nonsurgical wound dressing (principal); S31.109D Unspecified open wound of abdominal wall, unspecified quadrant without penetration into peritoneal cavity, subsequent encounter
CPT/HCPCS: 97605; 97606; 99213; 99214; A9270; G0463

== ENCOUNTER 2023-09-17 04:22 | Day surgery (SDC) | payer OTHER, SELFPAY ==
[2023-09-03 14:47] VITALS: BMI 34.5
--- NOTE | 2023-09-03 14:48 | PC.NURSE ---
Report to the Outpatient Waiting Room, entrance under the green pavilion located off [facility], at time _1000_ on date _[id number]_. Planned Procedure Time: _1200_. Time changes happen often and if your time is changed the preop area will call you the afternoon before. - You and your visitor will be asked to self-screen and do not enter if you have any COVID symptoms. - A mask is optional within the hospital at this time. Patients may have clear liquids (water, carbonated beverages, clear teas, apple juice) until 3 hours prior to surgery with a maximum of 20 ounces. - No food from midnight until time of surgery Take the following medications with a SIP of water the morning of surgery: __Symbicort, Flonase, Duloxetine and Leflunomide____ DO NOT STOP ANY OF YOUR OTHER PRESCRIPTION MEDICATIONS PRIOR TO SURGERY ?EXCEPT THE FOLLOWING Medications to discontinue per physician Please inquire of Dr Mejia's office if need to hold Meloxicam. Date to take last dose Please no make-up, nail moroccan, hairspray, perfume, deodorant, or body powder the day of surgery. No jewelry (including any body piercings) or valuables the day of surgery, leave them at home. Please take a shower or bath the night before, or the morning of, surgery with an antibacterial soap. Wear comfortable, loose fitting clothing. - Jewelry must be removed prior to entering the operating room. Rings and piercings that are not removed may be cut off. - The hospital will not accept responsibility for valuables. - Please leave all valuables, including medications, at home the day of surgery. If you are going home after surgery, a licensed lead driver must drive you home. - NO public transportation without another adult if you receive anesthesia. - We recommend that an adult stay with you for 24 hours following discharge. - We also recommend that you do not drive, make important decision, drink alcoholic beverages, or take any drugs that were not prescribed by your health care provider for at least 24 hours after your discharge time. Follow any additional instructions given to you from your surgeon. If you or anyone in your household have experienced Covid symptoms in the past week, please notify your surgeon or the nurse liaison at the phone number below for possible testing. Telephone instructions given to __Annie__and asked if any additional questions and then verbalized understanding. Patient advised to call surgeon office or pre surgery nurse liaison [phone] if any additional questions.
[2023-09-17] VITALS (8 sets, daily range): BP systolic 104–134; BP diastolic 67–86; PULSE 69–84; RESP 16–20; TEMP 36.7–36.8; O2SAT 95–100; BMI 34.9
[2023-09-17] MEDS: LACTATED RINGERS 1,000 ML 30 ML IV CONT (10:20)
--- NOTE | 2023-09-17 10:53 | WPDANESEPPF ---
Anes - Initial Pre Proc Eval Procedure: Operation Date: 09/17/23 12:00 Proposed Procedures p Exploration of Abdominal Wound for Foreign Body - Damian Mejia MD Date/Time: 09/17/23 10:53 Surgeon: Damian Mejia MD Pre Op Diagnosis: Foreign Body Abdominal Wound Patient Data Age: 52 Gender: F Height: 1.7 m Weight: 101.1 kg Last Vital Signs Temp 98.1 F 09/17/23 10:00 Pulse 84 09/17/23 10:00 Resp 16 09/17/23 10:00 BP 134/83 09/17/23 10:00 Pulse Ox 98 09/17/23 10:00 O2 Del Method Room Air 09/17/23 10:00 Allergies Allergy/AdvReac Type Severity Reaction Status Date / Time shellfish derived Allergy Unknown Verified 09/17/23 10:31 Home Medications Medication Instructions Recorded Confirmed Type duloxetine 30 mg capsule,delayed 30 mg PO DAILY #30 caps 10/01/22 09/03/23 Rx release (Cymbalta) leflunomide 10 mg tablet 10 mg PO DAILY 02/12/23 09/03/23 History losartan 25 mg tablet 25 mg PO DAILY 06/04/23 09/03/23 History meloxicam 15 mg tablet 15 mg PO DAILY #30 tabs 06/29/23 09/03/23 Rx fluticasone propionate 50 See Rx Instructions .Route 07/29/23 09/03/23 Rx mcg/actuation nasal .COMPLEX #16 mL spray,suspension budesonide-formoterol HFA 160 See Rx Instructions .Route 08/03/23 09/03/23 Rx mcg-4.5 mcg/actuation aerosol .COMPLEX #10.2 ea inhaler (Symbicort) montelukast 10 mg tablet See Rx Instructions .Route 08/03/23 09/03/23 Rx .COMPLEX #30 tabs trazodone 50 mg tablet 50 mg PO HS 09/03/23 09/03/23 History Patient hx anesthesia problems: none Family hx anesthesia problems: none Results Review: All pre-operative results and documents have been reviewed as part of the pre-operative evaluation. [facility] Past Medical History Medical History ADD (attention deficit disorder) Asthma Allergic asthma, allergic to cats which she has in her home Rheumatoid arthritis Right flank pain Surgical History Surgical History History of carpal tunnel surgery History of hernia surgery History of incisional hernia repair Repair 22 cm recurrent ventral incisional hernia, removal 22 x 15 cm abdominal wall mesh, extensive adhesiolysis, small-bowel resection with anastomosis S/P RUSTY-BSO Unilateral oophorectomy and BTL first then RUSTY and other ovary resection S/P trigger finger release Family History Family History Father Diabetes mellitus Mother Colon cancer Breast cancer Social History Social History Social History: Lives alone. . Smoke 1ppd x 42 years. has cats. marijuana but denies other drug use or hx of IVDU. Alcohol use anywhere from 0-20 drinks/week. Full code. Does not have a surrogate decision maker. Smoking packs per day: 0.5 Smoking cigarettes per day: 10.0 Years smoked: 42 Smoking pack-years: 21.00 Smoking status: Current every day smoker Tobacco type: cigarettes Second hand tobacco smoke exposure: Yes Alcohol intake: current Drinks per week: 3 Substance use: current Substance use type: marijuana Other substance usage details: daily Last use: 06/02/23 Do You Feel Safe in your Home?: Yes Lack of Transportation: No Lack of Food: Never True Current Housing: I Have Housing Concerned About Future Housing: No Difficulty Paying Gas/Electric Bills: No Difficulty Paying for Meds: No Currently Unemployed: No Education: Bachelor's Degree Difficulty w/ Childcare or Family Care: No Living arrangements: with family Spiritual care concerns: No Anes - Eval Final PreProcedure Day of Procedure 09/17/23 10:53 Patient weight: obese Heart: regular rate and rhythm Lungs: clear to auscultation and decreased breath sounds Airway: Mallampati scale and special considerations (Up
--- NOTE | 2023-09-17 11:00 | PM.SD2 ---
Same Day Admit/Disch: HPI History of Present Illness Chief complaint: Foreign Body Abdominal Wound Narrative: Patient is a 52-year old woman with past medical history of rheumatoid arthritis and asthma, who had an incarcerated recurrent incisional hernia with colonic obstruction in September of 2022 and subsequently had a recurrent ventral incisional hernia repair with removal of abdominal wall mesh, extensive adhesiolysis, and small-bowel resection with anastomosis on September 05, [address] Mejia. She was initially followed as an outpatient for a postoperative seroma, but did not schedule her next follow-up and had not been seen since November of 2022. She then presented to [facility] on 05/25/23 with increased abdominal distension in the area of her previous ventral hernia repair. She was also complaining of constipation. The ER provider initially thought this was a recurrent hernia and attempted reduction. They then ordered a CT scan of the abdomen and pelvis that showed an interval decrease in size of a 14 x 9 x 7 cm loculated subcutaneous fluid collection along the midline anterior abdominal wall overlying the site of a prior ventral hernia repair, most likely representing a seroma. She was discharged and instructed to follow up with surgery. She then returned back to [facility] 06/02/23 with complaints of redness and drainage at her scar over the seroma. The ED provider performed incision and drainage, and packed the wound. Labs showed white blood cell count was 11,100. CT scan abdomen and pelvis repeated and showed 10.2 x 8.4 x 1.4 cm thick walled subcutaneous fluid collection in anterior abdominal wall with interval decrease in size status post incision and drainage. She was admitted to [facility] and started on IV Zosyn. She transferred to [facility] on 06/04/23 and I&D of a large complex abdominal wound seroma was performed. The resulting wound has been treated with wound vac initially and then with silver gel and gauze. She has been folllowed by Dr. Mejia and the wound nurses since then. About 95% of the wound has healed but there is an area in the lower aspect of the wound that is not healing and is suspicious of foreign body, probably residual abdominal wall mesh, not removed in September of 2022. She is taken to surgery now for excisional debridement of abdominal wound and any foreign body suspicious for source the failure to heal PMFSH Past Medical History Medical History ADD (attention deficit disorder) Asthma Allergic asthma, allergic to cats which she has in her home Rheumatoid arthritis Right flank pain Surgical History Surgical History History of carpal tunnel surgery History of hernia surgery History of incisional hernia repair Repair 22 cm recurrent ventral incisional hernia, removal 22 x 15 cm abdominal wall mesh, extensive adhesiolysis, small-bowel resection with anastomosis S/P RUSTY-BSO Unilateral oophorectomy and BTL first then RUSTY and other ovary resection S/P trigger finger release Family History Family History Father Diabetes mellitus Mother Colon cancer Breast cancer Social History Social History Social History: Lives alone. . Smoke 1ppd x 42 years. has cats. marijuana but denies other drug use or hx of IVDU. Alcohol use anywhere from 0-20 drinks/week. Full code. Does not have a surrogate decision maker. Smoking packs per day: 0.5 Smoking cigarettes per day: 10.0 Years smoked: 42 Smoking pack-years: 21.00 Smoking status: Current every day smoker Tobacco type: cigarettes Second hand tobacco smoke exposure: Yes Alcohol intake: current Drinks per week: 3 Substance use: current Substance use type: marijuana Other substance usage details: daily Last use: 06/02/23 Do You Feel Safe in y
--- NOTE | 2023-09-17 11:17 | WPDHPUPDATE1 ---
History and Physical Update Update Date/Time: 09/17/23 11:17 History and Physical has been reviewed, including an updated exam of the patient. There are NO changes in the patient's condition. Risks, benefits, and alternatives have been discussed and questions answered. Patient agrees to proceed with procedure.
[2023-09-17] MEDS: ceFAZolin 2 GM/D5W 50 ML 2 GM/50 ML BAG IVPB (11:22)
--- NOTE | 2023-09-17 12:55 | W.PM.PROC2 ---
Procedure Note - Detailed Date of Procedure 09/17/23 Pre-op Diagnosis Nonhealing abdominal wound Post-op Diagnosis Same Procedure Performed Excisional debridement skin, subcutaneous, fascia abdominal wound with dimensions 4 cm long, 1 cm wide, 4 cm deep or 16 cm3 Surgeon Damian Mejia MD Plant Guide Ally Zafar [employer] Anesthesia General Indications Patient had a large abdominal wound seroma that started draining. It was incised and drained and a large resultant wound was closing secondarily with a variety of wound therapies. In the lower aspect of the wound, however, the wound depth would not improve and a small area failed to heal despite more than adequate time to do so. She is taken to surgery now to debride the wound and hopefully remove any offending foreign body that may be keeping it from closing. Findings No hernia mesh was noted. We excised around the tract to the fascia and excised the skin subcutaneous and muscular fascia associated with it. I cut open the removed tissues looking for mesh or suture material. Neither of these were found, only dense scarring. Description of Procedure Patient was taken to surgery and induced into general anesthesia. The abdomen was prepped and draped. Initially, I passed a small curved clamp through the opening associated with the nonhealing wound. The depth was the same as I recalled from her last visit. Also probing the surrounding tissue with the clamp, there were many irregular areas suggesting the presence of mesh. I then used the cautery and created a 4 cm long ellipse that included the wound opening in its center. The ellipse was 1 cm wide and extended completely around the nonhealing wound and inflammatory process. I then continued this dissection staying in non scarred subcutaneous tissue. I dissected down to the abdominal wall fascia and then excised the abdominal wall fascia taking care not to injure any bowel that may be attached to it. The specimen ended up being 4 cm long, 1 cm wide, and 4 cm deep. I then palpated the specimen thoroughly in found no edges of mesh. I placed a clamp through the opening and then cut open 1 of the sides through the wound tract that had been in place. I examined this very carefully looking and palpating for any mesh tissue. None was again seen. I then cut again the wound track, now more in a transverse direction, again looking for a foreign body such as mesh or permanent suture. None was seen or palpated. I then used a 3-0 Vicryl and loosely reapproximated the skin so that it would have some degree of the same orientation as when it was excised for the pathologist to examine. There was very heavy scarring associated with the abdominal wall fascia. This scarring was extremely dense as well. The fascia that the specimen had been removed showed a small opening that had some small intestine protruding. I reduced this and then palpated the undersurface of the abdominal wall. The underside of the abdominal wall fascia did not have any dense bowel adhesions and in fact was clear. I decided to close this defect with a 0 PDS interrupted suture. The suture were placed in interrupted fashion but using the back of a DeBakey forceps with each suture placement to ensure no bowel was in snared with the closure. Three of these suture were placed. Before tying any of the suture, I placed a finger in the defect and ensured that no bowel was entrapped with the tying of the suture. This was done with each of the suture and the fascial wound was then closed. From here, I used a 15 Taiwanese Peter drain and placed it over the closure and brought it out through the left lower quadrant. The drain was cut to the appropriate size. The exit site of the drain was sutured to the skin with 2-0 silk. I then used 3-0 Vicryl interrupted suture and closed the subcutaneous around and over the drain. I then loosely approximated the skin with vertical mattress sutures of 3-0 nylon. The drain was
--- NOTE | 2023-09-17 13:25 | SUR.PHASEI ---
Dr. Mejia notified of patient's drain not holding proper suction. Stated he would come assess patient before she was discharged.
[2023-09-17] MEDS: oxyCODONE HCL (*CRX) 5 MG TAB IR PO (13:39)
--- NOTE | 2023-09-17 14:26 | SUR.PHASEII ---
1415: patient dressed and ready for dc. waiting on ride.
== END 2023-09-17 14:40 | disposition home or self-care (01) ==
PROVIDERS: PCP Nurse Practitioner Family; Visit Provider Surgery
PROC: (CPT 11042; principal; 2023-09-17 12:00)
DX: S31.109D Unspecified open wound of abdominal wall, unspecified quadrant without penetration into peritoneal cavity, subsequent encounter (principal); T81.89XD Other complications of procedures, not elsewhere classified, subsequent encounter; Y83.8 Other surgical procedures as the cause of abnormal reaction of the patient, or of later complication, without mention of misadventure at the time of the procedure; F98.8 Other specified behavioral and emotional disorders with onset usually occurring in childhood and adolescence; M06.9 Rheumatoid arthritis, unspecified; J45.20 Mild intermittent asthma, uncomplicated; F12.90 Cannabis use, unspecified, uncomplicated; F17.210 Nicotine dependence, cigarettes, uncomplicated; Z79.51 Long term (current) use of inhaled steroids; E66.9 Obesity, unspecified; Z68.34 Body mass index [BMI] 34.0-34.9, adult
CPT/HCPCS: 11042; 88305; A9270; J0330; J0690; J1100; J1170; J2250; J2405; J2704; J3010; J7120

== ENCOUNTER 2023-10-16 09:59 | Outpatient (CLI) | payer OTHER, SELFPAY ==
--- NOTE | ~2023-10-16 | CT_ITS ---
Non-contrast CT scan of the Abdomen and Pelvis Clinical indication: Nonhealing umbilical wound Technique: 2.5 mm axial scans were obtained through the abdomen and pelvis without intravenous or or al contrast. Dose reduction technique was used on this scan by utilizing automated exposure control a nd iterative reconstruction technique. The dose-length product (DLP) was 1155.73 mGy-cm. COMPARISON: 06/02/2023 Findings: Images through the lung bases reveal no abnormalities. 2-3 millimeter nonobstructing right renal stones are present. No left renal stone seen. No hydronephr osis on either side. The liver, spleen, pancreas, and adrenals appear normal. Multiple calcified gallstones are present. T here are atherosclerotic calcifications of the aorta. . There is no evidence of bowel obstruction. There is a large open wound at the umbilicus. There is mil d soft tissue thickening around the margins of the wound. No abscess evident. No intraperitoneal exte nsion. Images through the pelvis were performed. There is no evidence of ascites or lymphadenopathy. Urinary bladder unremarkable. No pelvic mass seen. Impression: Large open wound of the umbilicus, as detailed above. No intraperitoneal extension evident. No fluid evident within the wound. Cholelithiasis. Small nonobstructing right renal stones, as above. Reviewed, dictated and finalized at location . Impression: Large open wound of the umbilicus, as detailed above. No intraperitoneal extens ion evident. No fluid evident within the wound. Cholelithiasis. Small nonobstructing right renal stones, as above.
== END 2023-10-16 10:00 | disposition home or self-care (01) ==
LOC: CHSIMG 10:01
PROVIDERS: PCP Nurse Practitioner Family; Visit Provider Surgery
DX: T81.89XA Other complications of procedures, not elsewhere classified, initial encounter (principal); K80.20 Calculus of gallbladder without cholecystitis without obstruction; N20.0 Calculus of kidney
CPT/HCPCS: 74176

== ENCOUNTER 2023-12-10 14:19 | Outpatient (CLI) | payer OTHER, SELFPAY ==
[2023-12-10 14:56] LABS: Strep Group A RT-PCR NOT DETECTED (Negative)
[2023-12-10 15:06] LABS: SARS-CoV-2 RNA PCR Negative (Negative)
[2023-12-10 15:09] LABS: Influenza A QL RT-PCR Negative (Negative); Influenza B QL RT-PCR Negative (Negative); RSV RNA, RT-PCR Negative (Negative)
== END 2023-12-10 14:20 | disposition home or self-care (01) ==
LOC: CHSLAB 14:20
PROVIDERS: PCP Nurse Practitioner Family; Visit Provider Nurse Practitioner Family
DX: J02.9 Acute pharyngitis, unspecified (principal); R05.9 Cough, unspecified
CPT/HCPCS: 87637; 87651

== ENCOUNTER 2023-12-25 09:53 | Outpatient (CLI) | payer OTHER, SELFPAY ==
--- NOTE | ~2023-12-25 | MMUS_ITS ---
EXAMINATION: MM diagnostic rut BI w osvaldo, US breast BI limited HISTORY: Probable benign breast lesions, six-month follow-up TECHNIQUE: Additional 3-D tomosynthesis images of the bilateral breasts were performed and synthetic 2-D images were generated. CAD analysis was submitted and interpreted. High resolution limited bilate ral breast ultrasound was performed. COMPARISON: 03/04/2023, 03/27/2023 BREAST PARENCHYMAL COMPOSITION:Not Dense. There are scattered areas of fibroglandular density. FINDINGS: MAMMOGRAPHIC FINDINGS: Parenchymal pattern of both breasts is unchanged. No suspicious mass lesion or distortion. No suspici ous microcalcifications. ULTRASOUND: There is a stable 6 x 7 x 3 mm wider than tall hypoechoic mass at the 6:00 position right breast, radha r the nipple. There is a 5 mm simple cyst at the left breast 3:00 position, 3 cm from the nipple. Pos sible focal mildly dilated ducts in the left breast. IMPRESSION: Benign-appearing lesions sonographically, as above, stable from prior exam. No evidence for malignan cy. Return to routine screening mammography advised. BI-RADS Category 2: Benign finding(s). Reviewed, dictated and finalized at location . IMPRESSION: Benign-appearing lesions sonographically, as above, stable from prior exam. No evidence for malignancy. Return to routine screening mammography advised. BI-RADS Category 2: Benign finding(s).
== END 2023-12-25 09:54 | disposition home or self-care (01) ==
LOC: CHSIMG 09:54
PROVIDERS: PCP Nurse Practitioner Family; Visit Provider Nurse Practitioner Family
DX: R92.8 Other abnormal and inconclusive findings on diagnostic imaging of breast (principal)
CPT/HCPCS: 76642; 77062; 77066; G0279

== ENCOUNTER 2024-01-25 07:06 | Outpatient (RCR) | payer OTHER, SELFPAY ==
[2023-12-03 09:33] VITALS: BMI 34.2
--- NOTE | 2023-12-10 07:23 | PCWOUND ---
WOCN NOTE Patient called to cancel appointment for today due to illness. She will call back to reschedule when feeling better.
--- NOTE | 2024-02-25 09:11 | PCWOUND ---
WOCN NOTE Patient was a no show for today's appointment. called her and she stated she forgot, and the wound is closed. Let Dr. Mejia's office know and waiting for direction on follow up if needed.
--- NOTE | 2024-02-25 09:41 | PCWOUND ---
DWAYNECN NOTE Received call from Dr. Burrell office. no need to reschedule patient at this time. She should call if any problems arise. Called patient and let her know direction, she expressed understanding.
== END 2024-03-02 23:59 | disposition home or self-care (01) ==
LOC: ANHWOC 07:06
PROVIDERS: PCP Nurse Practitioner Family; Visit Provider Surgery
DX: S31.109A Unspecified open wound of abdominal wall, unspecified quadrant without penetration into peritoneal cavity, initial encounter (principal)
CPT/HCPCS: 99213; A9270; G0463